=== PATIENT | male | born 1945 | race Caucasian/White ===

== ENCOUNTER 2016-09-08 12:00 | Outpatient (CLI) | payer MEDICARE, OTHER | END 2016-09-08 12:01 | disposition home or self-care (01) | DX: E78.5 Hyperlipidemia, unspecified (principal); E03.9 Hypothyroidism, unspecified; R73.9 Hyperglycemia, unspecified ==

== ENCOUNTER 2017-03-30 08:00 | Outpatient (CLI) | payer MEDICARE, OTHER ==
[2017-03-30 19:23] LABS: ALBUMIN/GLOBULIN RATIO 1.4 (1.0-2.2); BUN - BLOOD UREA NITROGEN 14 mg/dL (6-20); CARBON DIOXIDE - CO2 27 mmol/L (21-32); CHLORIDE 105 mmol/L (101-111); CREATININE 1.1 mg/dL (0.6-1.2); GFR - MDRD 66 (>89); GLUCOSE 144 mg/dL (70-100); POTASSIUM 4.2 mmol/L (3.5-5.0); SODIUM 138 mmol/L (135-145); TOTAL PROTEIN 7.4 g/dL (6.7-8.2); URIC ACID 5.3 mg/dL (2.6-7.2)
[2017-03-30 19:27] LABS: HEMOGLOBIN A1C 0.78 g/dL
== END 2017-03-30 08:01 | disposition home or self-care (01) ==
LOC: LAB.WCP 08:00
PROVIDERS: ATTEND Family Medicine
DX: M10.00 Idiopathic gout, unspecified site (principal); E78.5 Hyperlipidemia, unspecified; C34.90 Malignant neoplasm of unspecified part of unspecified bronchus or lung; I10 Essential (primary) hypertension; I82.403 Acute embolism and thrombosis of unspecified deep veins of lower extremity, bilateral; R56.9 Unspecified convulsions; R73.9 Hyperglycemia, unspecified
CPT/HCPCS: 36415; 80053; 83036; 84443; 84550

== ENCOUNTER 2017-08-31 08:00 | Outpatient (CLI) | payer MEDICARE, OTHER ==
[2017-08-31 19:06] LABS: BASOPHILS % (AUTO) 0.5 %; EOSINOPHILS # (AUTO) 0.2 10^3/uL (0.0-0.7); EOSINOPHILS % (AUTO) 2.9 %; HGB - HEMOGLOBIN 15.4 g/dL (14.0-18.0); LYMPHOCYTES # (AUTO) 1.6 10^3/uL (1.5-3.5); LYMPHOCYTES % (AUTO) 27.2 %; MEAN CORPUSCULAR HEMOGLOBIN 29.2 pg (27.0-31.0); MEAN CORPUSCULAR HGB CONC 33.5 g/dL (32.0-36.0); MEAN CORPUSCULAR VOLUME 87.1 fL (80.0-94.0); MEAN PLATELET VOLUME 7.7 fL (7.4-11.4); MONOCYTES # (AUTO) 0.5 10^3/uL (0.0-1.0); MONOCYTES % (AUTO) 8.8 %; NEUTROPHILS # (AUTO) 3.6 10^3/uL (1.5-6.6); NEUTROPHILS % (AUTO) 60.6 %; PLT - PLATELET COUNT 176 10^3/uL (130-450); RED BLOOD COUNT 5.28 10^6/uL (4.70-6.10); RED CELL DISTRIBUTION WIDTH 14.4 % (12.0-15.0); WHITE BLOOD COUNT 5.9 x10^3/uL (4.8-10.8)
[2017-08-31 19:29] LABS: ALBUMIN 4.1 g/dL (3.2-5.5); ALBUMIN/GLOBULIN RATIO 1.2 (1.0-2.2); ALKALINE PHOSPHATASE 155 IU/L (42-121); ALT ALANINE AMINOTRANSFERASE 35 IU/L (10-60); AST ASPARTATE AMINOTRANSFERASE 25 IU/L (10-42); BILIRUBIN,TOTAL 0.8 mg/dL (0.2-1.0); BUN - BLOOD UREA NITROGEN 15 mg/dL (6-20); CALCIUM 8.7 mg/dL (8.5-10.3); CARBON DIOXIDE - CO2 27 mmol/L (21-32); CHLORIDE 103 mmol/L (101-111); CHOL/HDL RATIO 3.7 (<5.0); CHOLESTEROL 151 mg/dL; CREATININE 0.9 mg/dL (0.6-1.2); GFR - MDRD 83 (>89); GLUCOSE 139 mg/dL (70-100); HDL CHOLESTEROL 41 mg/dL; LDL CHOLESTEROL,CALCULATED 76 mg/dL; LDL/HDL RATIO 1.9 (<3.6); SODIUM 138 mmol/L (135-145); TOTAL PROTEIN 7.4 g/dL (6.7-8.2); VLDL CHOLESTEROL 34 mg/dL
== END 2017-08-31 08:01 | disposition home or self-care (01) ==
LOC: LAB.WCP 08:00
PROVIDERS: ATTEND Family Medicine
DX: R07.89 Other chest pain (principal); E78.5 Hyperlipidemia, unspecified; C34.90 Malignant neoplasm of unspecified part of unspecified bronchus or lung; I10 Essential (primary) hypertension
CPT/HCPCS: 36415; 80053; 80061; 83721; 85025

== ENCOUNTER 2017-09-14 13:19 | Outpatient (CLI) | payer MEDICARE, OTHER ==
[2017-09-14] MEDS ORDERED: ALBUTEROL NEB 2.5 MG/3 ML INH ONE (13:30)
== END 2017-09-14 13:20 | disposition home or self-care (01) ==
LOC: RT 13:19
PROVIDERS: ATTEND Family Medicine
DX: J44.9 Chronic obstructive pulmonary disease, unspecified (principal)
CPT/HCPCS: 94060; 94729; J7613

== ENCOUNTER → 2018-05-03 | Outpatient (CLI) | payer MEDICARE, OTHER ==
[2018-05-03 19:14] LABS: ALBUMIN 3.9 g/dL (3.2-5.5); ALKALINE PHOSPHATASE 176 IU/L (42-121); ALT ALANINE AMINOTRANSFERASE 23 IU/L (10-60); AST ASPARTATE AMINOTRANSFERASE 20 IU/L (10-42); BILIRUBIN,TOTAL 0.6 mg/dL (0.2-1.0); BUN - BLOOD UREA NITROGEN 15 mg/dL (6-20); CALCIUM 8.9 mg/dL (8.5-10.3); CARBON DIOXIDE - CO2 29 mmol/L (21-32); CHLORIDE 101 mmol/L (101-111); CREATININE 1.1 mg/dL (0.6-1.2); GFR - MDRD 66 (>89); GLUCOSE 138 mg/dL (70-100); SODIUM 137 mmol/L (135-145); TOTAL PROTEIN 7.7 g/dL (6.7-8.2)
[2018-05-03 19:32] LABS: HEMOGLOBIN A1C 0.7 g/dL; HEMOGLOBIN A1C % 5.9 % (4.6-6.2)
== END ==
LOC: LAB.WCP 11:36
PROVIDERS: ATTEND Family Medicine
DX: R73.01 Impaired fasting glucose (principal); E03.9 Hypothyroidism, unspecified
CPT/HCPCS: 36415; 80053; 83036; 84443

== ENCOUNTER 2018-06-19 16:27 | Outpatient (CLI) | payer MEDICARE, OTHER | END 2018-06-19 16:28 | disposition EMS.NT | LOC: EMS 16:27 | PROVIDERS: ATTEND Surgery | DX: R06.02 Shortness of breath (principal); R55 Syncope and collapse ==

== ENCOUNTER 2018-09-20 08:00 | Outpatient (CLI) | payer MEDICARE, OTHER | END 2018-09-20 23:59 | disposition home or self-care (01) | LOC: LAB.WCP 08:00 | PROVIDERS: ATTEND Family Medicine | DX: I82.403 Acute embolism and thrombosis of unspecified deep veins of lower extremity, bilateral (principal); Z79.01 Long term (current) use of anticoagulants ==

== ENCOUNTER 2018-10-11 08:00 | Outpatient (CLI) | payer MEDICARE, OTHER | END 2018-10-11 23:59 | disposition home or self-care (01) | LOC: LAB.WCP 08:00 | PROVIDERS: ATTEND Family Medicine | DX: I82.403 Acute embolism and thrombosis of unspecified deep veins of lower extremity, bilateral (principal); Z79.01 Long term (current) use of anticoagulants | CPT/HCPCS: 81025 ==

== ENCOUNTER 2018-11-04 08:00 | Outpatient (CLI) | payer MEDICARE, OTHER | END 2018-11-04 08:01 | disposition home or self-care (01) | LOC: LAB.WCP 08:00 | PROVIDERS: ATTEND Family Medicine | DX: I80.9 Phlebitis and thrombophlebitis of unspecified site (principal); Z79.01 Long term (current) use of anticoagulants | CPT/HCPCS: 81025 ==

== ENCOUNTER 2018-11-22 08:00 | Outpatient (CLI) | payer MEDICARE, OTHER ==
[2018-11-22 19:12] LABS: HB2 TOTAL 17.2 g/dL; HEMOGLOBIN A1C 0.72 g/dL
[2018-11-22 19:21] LABS: ALBUMIN 3.9 g/dL (3.2-5.5); ALBUMIN/GLOBULIN RATIO 1.1 (1.0-2.2); ALKALINE PHOSPHATASE 232 IU/L (42-121); ALT ALANINE AMINOTRANSFERASE 335 IU/L (10-60); AST ASPARTATE AMINOTRANSFERASE 81 IU/L (10-42); BUN - BLOOD UREA NITROGEN 15 mg/dL (6-20); CARBON DIOXIDE - CO2 29 mmol/L (21-32); CHLORIDE 104 mmol/L (101-111); CHOL/HDL RATIO 4.2 (<5.0); CHOLESTEROL 155 mg/dL; CREATININE 1.1 mg/dL (0.6-1.2); GFR - MDRD 66 (>89); GLUCOSE 133 mg/dL (70-100); HDL CHOLESTEROL 37 mg/dL; LDL CHOLESTEROL,CALCULATED 95 mg/dL; LDL/HDL RATIO 2.6 (<3.6); SODIUM 139 mmol/L (135-145); TOTAL PROTEIN 7.4 g/dL (6.7-8.2); VLDL CHOLESTEROL 23 mg/dL
[2018-11-22 21:04] LABS: FREE T4 (FREE THYROXINE) 1.02 ng/dL (0.58-1.64)
== END 2018-11-22 08:01 | disposition home or self-care (01) ==
LOC: LAB.WCP 08:00
PROVIDERS: ATTEND Family Medicine
DX: C34.90 Malignant neoplasm of unspecified part of unspecified bronchus or lung (principal); I10 Essential (primary) hypertension; I82.403 Acute embolism and thrombosis of unspecified deep veins of lower extremity, bilateral
CPT/HCPCS: 36415; 80053; 80061; 82043; 83036; 83721; 84439; 84443

== ENCOUNTER 2018-12-07 14:46 | Outpatient (CLI) | payer MEDICARE, OTHER ==
[2018-12-08 12:11] LABS: HEPATITIS A IGM NON-REACTIVE (NON-REACTIVE); HEPATITIS B CORE ANTIBODY IGM NON-REACTIVE (NON-REACTIVE); HEPATITIS B SURFACE ANTIGEN NON-REACTIVE (NON-REACTIVE); HEPATITIS C ANTIBODY NON-REACTIVE (NON-REACTIVE)
== END 2018-12-07 14:47 | disposition home or self-care (01) ==
LOC: LAB.WCP 14:46
PROVIDERS: ATTEND Family Medicine
DX: R94.5 Abnormal results of liver function studies (principal)
CPT/HCPCS: 36415; 80074

== ENCOUNTER 2018-12-07 15:47 | Outpatient (CLI) | payer MEDICARE, OTHER ==
[2018-12-07] MEDS ORDERED: IOVERSOL 320 50 ML VIAL ONE (16:01)
[2018-12-07] MEDS ORDERED: IOVERSOL 320 100 ML VIAL IVP ONE ×2 (16:01→16:51)
[2018-12-07] MEDS ORDERED: IOVERSOL 320 50 ML VIAL PO ONE (16:51)
--- NOTE | 2018-12-20 07:24 | CT Report ---
Reason: ABNORMAL LIVER FUNCTION TESTS Procedure Date: 12/07/2018 Accession Number: [id number] / [id number] Procedure: CT - Abdomen/Pelvis W CPT Code: FULL RESULT: EXAM: CT ABDOMEN AND PELVIS EXAM DATE: 12/07/2018 04:49 PM. CLINICAL HISTORY: Abnormal liver function test. COMPARISONS: ABDOMEN/PELVIS W/ 03/31/2016 2:48 PM. TECHNIQUE: Routine helical CT imaging was performed through the abdomen and pelvis. IV contrast: 100 mL Optiray 320. Enteric contrast: No. Reconstructions: Coronal and sagittal. In accordance with CT protocol optimization, one or more of the following dose reduction techniques were utilized for this exam: automated exposure control, adjustment of mA and/or KV based on patient size, or use of iterative reconstructive technique. FINDINGS: Lung Bases: Unremarkable. Liver: The liver is enlarged measuring 20.7 cm. This may be due to variant Juan lobe anatomy. No liver lesion or mass is seen. The portal and hepatic venous vasculature is diffusely patent. Gallbladder/Bile Ducts: Cholecystectomy changes are seen. There is no biliary dilation. Spleen: Normal. Pancreas: Normal. Adrenal Glands: Normal. Kidneys: Several scattered cortical renal cysts are seen bilaterally. No complex cystic or solid masses identified. No nephrolithiasis or hydronephrosis. Peritoneal Cavity/Bowel: There is mild predominantly sigmoid diverticulosis without evidence of diverticulitis. There is no obstruction or ileus. No free fluid or free air. The appendix is not visualized, however, no inflammatory changes are seen in the right lower quadrant region. Pelvic Organs: Normal. The bladder and visualized pelvic organs are within normal limits. Vasculature: Scattered aortic calcification is seen. No aneurysm. IVC filter is in place. The IVC is atretic inferior to the filter suggesting chronic occlusion. Dilated collaterals are seen in the common iliac veins, as well as, along the anterior abdominal wall consistent with chronic IVC occlusion. Appearance is similar to 03/31/2016. Bones: Partially visualized prominent cortical thickening and prominent trabeculations in the proximal right femur possibly due to Paget's disease again seen. Similar less prominent changes in the right posterior iliac bone is also again seen. Other: None. IMPRESSION: 1. Mild hepatomegaly which may be related to variant Juan lobe anatomy. No liver lesion or mass demonstrated. 2. Mild sigmoid diverticulosis without diverticulitis. 3. Status post cholecystectomy. No biliary dilation. 4. Scattered bilateral renal cyst. No hydronephrosis. 5. 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 6. 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 RADIA
== END 2018-12-07 15:48 | disposition home or self-care (01) ==
LOC: DI 15:47
PROVIDERS: ATTEND Family Medicine
DX: R16.0 Hepatomegaly, not elsewhere classified (principal); K57.30 Diverticulosis of large intestine without perforation or abscess without bleeding; Q61.02 Congenital multiple renal cysts; I82.221 Chronic embolism and thrombosis of inferior vena cava; Z90.49 Acquired absence of other specified parts of digestive tract; R94.5 Abnormal results of liver function studies
CPT/HCPCS: 36415; 74177; 80074; Q9967

== ENCOUNTER 2018-12-20 08:00 | Outpatient (CLI) | payer MEDICARE, OTHER | END 2018-12-20 08:01 | disposition home or self-care (01) | LOC: LAB.WCP 08:00 | PROVIDERS: ATTEND Family Medicine | DX: I82.403 Acute embolism and thrombosis of unspecified deep veins of lower extremity, bilateral (principal) ==

== ENCOUNTER 2019-01-17 08:00 | Outpatient (CLI) | payer MEDICARE, OTHER | END 2019-01-17 08:01 | disposition home or self-care (01) | LOC: LAB.WCP 08:00 | PROVIDERS: ATTEND Family Medicine | DX: I82.403 Acute embolism and thrombosis of unspecified deep veins of lower extremity, bilateral (principal); Z79.01 Long term (current) use of anticoagulants ==

== ENCOUNTER 2019-01-17 08:00 | Outpatient (CLI) | payer MEDICARE, OTHER ==
[2019-01-17 18:39] LABS: BASOPHILS % (AUTO) 0.2 %; EOSINOPHILS # (AUTO) 0.2 10^3/uL (0.0-0.7); EOSINOPHILS % (AUTO) 3.3 %; HGB - HEMOGLOBIN 15.5 g/dL (14.0-18.0); LYMPHOCYTES # (AUTO) 1.2 10^3/uL (1.5-3.5); LYMPHOCYTES % (AUTO) 19.5 %; MEAN CORPUSCULAR HEMOGLOBIN 29.4 pg (27.0-31.0); MEAN CORPUSCULAR HGB CONC 32.4 g/dL (32.0-36.0); MEAN CORPUSCULAR VOLUME 90.7 fL (80.0-94.0); MEAN PLATELET VOLUME 9.6 fL (7.4-11.4); MONOCYTES # (AUTO) 0.6 10^3/uL (0.0-1.0); MONOCYTES % (AUTO) 9.5 %; NEUTROPHILS # (AUTO) 4.2 10^3/uL (1.5-6.6); PLT - PLATELET COUNT 186 10^3/uL (130-450); RED BLOOD COUNT 5.28 10^6/uL (4.70-6.10); RED CELL DISTRIBUTION WIDTH 14.4 % (12.0-15.0); WHITE BLOOD COUNT 6.3 x10^3/uL (4.8-10.8)
[2019-01-17 19:11] LABS: ALBUMIN 3.9 g/dL (3.2-5.5); ALBUMIN/GLOBULIN RATIO 1.1 (1.0-2.2); BILIRUBIN,TOTAL 0.7 mg/dL (0.2-1.0); CALCIUM 9.4 mg/dL (8.5-10.3); TOTAL PROTEIN 7.5 g/dL (6.7-8.2)
== END 2019-01-17 08:01 | disposition home or self-care (01) ==
LOC: LAB.WCP 08:00
PROVIDERS: ATTEND Family Medicine
DX: R94.5 Abnormal results of liver function studies (principal); I82.403 Acute embolism and thrombosis of unspecified deep veins of lower extremity, bilateral; Z79.01 Long term (current) use of anticoagulants
CPT/HCPCS: 36415; 80053; 85025

== ENCOUNTER 2019-02-14 08:00 | Outpatient (CLI) | payer MEDICARE, OTHER | END 2019-02-14 23:59 | disposition home or self-care (01) | LOC: LAB.WCP 08:00 | PROVIDERS: ATTEND Family Medicine | DX: I82.403 Acute embolism and thrombosis of unspecified deep veins of lower extremity, bilateral (principal); Z79.01 Long term (current) use of anticoagulants ==

== ENCOUNTER 2019-03-14 08:00 | Outpatient (CLI) | payer MEDICARE, OTHER | END 2019-03-14 23:59 | disposition home or self-care (01) | LOC: LAB.WCP 08:00 | PROVIDERS: ATTEND Family Medicine | DX: Z79.01 Long term (current) use of anticoagulants (principal); I80.9 Phlebitis and thrombophlebitis of unspecified site ==

== ENCOUNTER 2019-03-28 08:00 | Outpatient (CLI) | payer MEDICARE, OTHER | END 2019-03-28 23:59 | disposition home or self-care (01) | LOC: LAB.WCP 08:00 | PROVIDERS: ATTEND Family Medicine | DX: I82.403 Acute embolism and thrombosis of unspecified deep veins of lower extremity, bilateral (principal); Z79.01 Long term (current) use of anticoagulants ==

== ENCOUNTER 2019-04-28 08:00 | Outpatient (CLI) | payer MEDICARE, OTHER | END 2019-04-28 23:59 | disposition home or self-care (01) | LOC: LAB.WCP 08:00 | PROVIDERS: ATTEND Family Medicine | DX: Z79.01 Long term (current) use of anticoagulants (principal); I82.403 Acute embolism and thrombosis of unspecified deep veins of lower extremity, bilateral ==

== ENCOUNTER 2019-05-16 08:00 | Outpatient (CLI) | payer MEDICARE, OTHER | END 2019-05-16 23:59 | disposition home or self-care (01) | LOC: LAB.WCP 08:00 | PROVIDERS: ATTEND Family Medicine | DX: Z79.01 Long term (current) use of anticoagulants (principal); I82.403 Acute embolism and thrombosis of unspecified deep veins of lower extremity, bilateral ==

== ENCOUNTER 2019-06-06 09:00 | Outpatient (CLI) | payer MEDICARE, OTHER ==
[2019-06-06 18:58] LABS: ALBUMIN 3.3 g/dL (3.2-5.5); ALBUMIN/GLOBULIN RATIO 0.7 (1.0-2.2); BILIRUBIN,TOTAL 0.6 mg/dL (0.2-1.0); CALCIUM 8.7 mg/dL (8.5-10.3); CREATININE 1.1 mg/dL (0.6-1.2); TOTAL PROTEIN 7.8 g/dL (6.7-8.2)
[2019-06-06 19:03] LABS: HB2 TOTAL 15.8 g/dL; HEMOGLOBIN A1C 0.71 g/dL; HEMOGLOBIN A1C % 6.3 % (4.6-6.2)
== END 2019-06-06 23:59 | disposition home or self-care (01) ==
LOC: LAB.WCP 09:00
PROVIDERS: ATTEND Family Medicine
DX: R73.01 Impaired fasting glucose (principal)
CPT/HCPCS: 36415; 80053; 83036

== ENCOUNTER 2019-06-13 08:00 | Outpatient (CLI) | payer MEDICARE, OTHER | END 2019-06-13 23:59 | disposition home or self-care (01) | LOC: LAB.WCP 08:00 | PROVIDERS: ATTEND Family Medicine | DX: Z79.01 Long term (current) use of anticoagulants (principal); I82.403 Acute embolism and thrombosis of unspecified deep veins of lower extremity, bilateral ==

== ENCOUNTER 2019-06-23 15:31 | Outpatient (CLI) | payer MEDICARE, OTHER ==
--- NOTE | 2019-06-23 21:41 | Ultrasound Report ---
Reason: ABN LIVER FUNCTION TESTS Procedure Date: 06/23/2019 Accession Number: [id number] / [id number] Procedure: US - Abdomen Limited CPT Code: Final Report FULL RESULT: EXAM: ABDOMEN ULTRASOUND LIMITED, RUQ EXAM DATE: 06/23/2019 04:50 PM. CLINICAL HISTORY: ABN LIVER FUNCTION TESTS. COMPARISON: ABDOMEN/PELVIS W/ 12/07/2018 4:46 PM. TECHNIQUE: Real-time scanning was performed with static images obtained. FINDINGS: Liver: Normal in size. There may be some increased echogenicity that could be related to fatty infiltration. No focal masses. 20.6 cm. Main portal vein flow: Hepatopetal. Gallbladder: Status post cholecystectomy. Biliary System: CBD measures 7 mm. No intrahepatic or extrahepatic ductal dilatation. Other: Right kidney measures 12.1 cm in length, with several cysts, largest in the mid upper pole and is exophytic measuring 8.1 x 5.1 x 6.9 cm. Smaller adjacent cyst also seen. Both of these cysts were seen on prior CT scan. IMPRESSION: 1. Probable hepatic steatosis. 2. Right renal cysts. RADIA
== END 2019-06-23 15:32 | disposition home or self-care (01) ==
LOC: DI 15:31
PROVIDERS: ATTEND Family Medicine
DX: R94.5 Abnormal results of liver function studies (principal); Q61.02 Congenital multiple renal cysts
CPT/HCPCS: 76705

== ENCOUNTER 2019-07-11 08:00 | Outpatient (CLI) | payer MEDICARE, OTHER | END 2019-07-11 23:59 | disposition home or self-care (01) | LOC: LAB.WCP 08:00 | PROVIDERS: ATTEND Family Medicine | DX: Z79.01 Long term (current) use of anticoagulants (principal); I80.203 Phlebitis and thrombophlebitis of unspecified deep vessels of lower extremities, bilateral ==

== ENCOUNTER 2019-08-08 08:00 | Outpatient (CLI) | payer MEDICARE, OTHER | END 2019-08-08 23:59 | disposition home or self-care (01) | LOC: LAB.WCP 08:00 | PROVIDERS: ATTEND Family Medicine | DX: Z79.01 Long term (current) use of anticoagulants (principal); I82.403 Acute embolism and thrombosis of unspecified deep veins of lower extremity, bilateral ==

== ENCOUNTER 2019-09-05 08:00 | Outpatient (CLI) | payer MEDICARE, OTHER | END 2019-09-05 23:59 | disposition home or self-care (01) | LOC: LAB.WCP 08:00 | PROVIDERS: ATTEND Family Medicine | DX: I82.409 Acute embolism and thrombosis of unspecified deep veins of unspecified lower extremity (principal); Z79.01 Long term (current) use of anticoagulants ==

== ENCOUNTER 2019-10-31 08:00 | Outpatient (CLI) | payer MEDICARE, OTHER | END 2019-10-31 23:59 | disposition home or self-care (01) | LOC: LAB.WCP 08:00 | PROVIDERS: ATTEND Family Medicine | DX: I82.403 Acute embolism and thrombosis of unspecified deep veins of lower extremity, bilateral (principal); Z79.01 Long term (current) use of anticoagulants ==

== ENCOUNTER 2019-11-28 08:00 | Outpatient (CLI) | payer MEDICARE, OTHER | END 2019-11-28 23:59 | disposition home or self-care (01) | LOC: LAB.WCP 08:00 | PROVIDERS: ATTEND Family Medicine | DX: I82.403 Acute embolism and thrombosis of unspecified deep veins of lower extremity, bilateral (principal); Z79.01 Long term (current) use of anticoagulants ==

== ENCOUNTER 2019-12-26 08:00 | Outpatient (CLI) | payer MEDICARE, OTHER | END 2019-12-26 23:59 | disposition home or self-care (01) | LOC: LAB.WCP 08:00 | PROVIDERS: ATTEND Family Medicine | DX: I82.403 Acute embolism and thrombosis of unspecified deep veins of lower extremity, bilateral (principal); Z79.01 Long term (current) use of anticoagulants ==

== ENCOUNTER 2020-01-23 08:00 | Outpatient (CLI) | payer MEDICARE, OTHER | END 2020-01-23 23:59 | disposition home or self-care (01) | LOC: LAB.WCP 08:00 | PROVIDERS: ATTEND Family Medicine | DX: I82.403 Acute embolism and thrombosis of unspecified deep veins of lower extremity, bilateral (principal); Z79.01 Long term (current) use of anticoagulants ==

== ENCOUNTER 2020-02-20 08:00 | Outpatient (CLI) | payer MEDICARE, OTHER | END 2020-02-20 23:59 | disposition home or self-care (01) | LOC: LAB.WCP 08:00 | PROVIDERS: ATTEND Family Medicine | DX: I82.403 Acute embolism and thrombosis of unspecified deep veins of lower extremity, bilateral (principal); Z79.01 Long term (current) use of anticoagulants ==

== ENCOUNTER 2020-03-07 07:00 | Outpatient (CLI) | payer MEDICARE, OTHER | END 2020-03-07 23:59 | disposition home or self-care (01) | LOC: LAB.WCP 07:00 | PROVIDERS: ATTEND Family Medicine | DX: I10 Essential (primary) hypertension (principal); E03.9 Hypothyroidism, unspecified; R56.9 Unspecified convulsions | CPT/HCPCS: 36415; 80177; 81599 ==

== ENCOUNTER 2020-03-19 08:00 | Outpatient (CLI) | payer MEDICARE, OTHER | END 2020-03-19 23:59 | disposition home or self-care (01) | LOC: LAB.WCP 08:00 | PROVIDERS: ATTEND Family Medicine | DX: I82.403 Acute embolism and thrombosis of unspecified deep veins of lower extremity, bilateral (principal); Z79.01 Long term (current) use of anticoagulants ==

== ENCOUNTER 2020-04-05 08:00 | Outpatient (CLI) | payer MEDICARE, OTHER | END 2020-04-05 23:59 | disposition home or self-care (01) | LOC: LAB.WCP 08:00 | PROVIDERS: ATTEND Family Medicine | DX: Z79.01 Long term (current) use of anticoagulants (principal) ==

== ENCOUNTER 2020-04-29 08:00 | Outpatient (CLI) | payer MEDICARE, OTHER | END 2020-04-29 23:59 | disposition home or self-care (01) | LOC: LAB.WCP 08:00 | PROVIDERS: ATTEND Physician Assistant Medical | DX: Z79.01 Long term (current) use of anticoagulants (principal) ==

== ENCOUNTER 2020-05-15 08:00 | Outpatient (CLI) | payer MEDICARE, OTHER | END 2020-05-15 23:59 | disposition home or self-care (01) | LOC: LAB.WCP 08:00 | PROVIDERS: ATTEND Nurse Practitioner Family | DX: Z79.01 Long term (current) use of anticoagulants (principal) ==

== ENCOUNTER 2020-05-29 08:00 | Outpatient (CLI) | payer MEDICARE, OTHER | END 2020-05-29 23:59 | disposition home or self-care (01) | LOC: LAB.WCP 08:00 | PROVIDERS: ATTEND Family Medicine | DX: Z79.01 Long term (current) use of anticoagulants (principal) ==

== ENCOUNTER 2020-07-03 08:00 | Outpatient (CLI) | payer MEDICARE, OTHER | END 2020-07-03 23:59 | disposition home or self-care (01) | LOC: LAB.WCP 08:00 | PROVIDERS: ATTEND Family Medicine | DX: Z79.01 Long term (current) use of anticoagulants (principal) ==

== ENCOUNTER 2020-07-17 08:00 | Outpatient (CLI) | payer MEDICARE, OTHER | END 2020-07-17 23:59 | disposition home or self-care (01) | LOC: LAB.WCP 08:00 | PROVIDERS: ATTEND Family Medicine | DX: Z79.01 Long term (current) use of anticoagulants (principal) ==

== ENCOUNTER 2020-08-22 08:00 | Outpatient (CLI) | payer MEDICARE, OTHER ==
[2020-08-22 12:00] LABS: BASOPHILS % (AUTO) 0.3 %; EOSINOPHILS # (AUTO) 0.2 10^3/uL (0.0-0.7); EOSINOPHILS % (AUTO) 3.3 %; HGB - HEMOGLOBIN 15.5 g/dL (14.0-18.0); LYMPHOCYTES # (AUTO) 1.6 10^3/uL (1.5-3.5); LYMPHOCYTES % (AUTO) 24.2 %; MEAN CORPUSCULAR HEMOGLOBIN 29.3 pg (27.0-31.0); MEAN CORPUSCULAR HGB CONC 32.3 g/dL (32.0-36.0); MEAN CORPUSCULAR VOLUME 90.7 fL (80.0-94.0); MEAN PLATELET VOLUME 8.9 fL (7.4-11.4); MONOCYTES # (AUTO) 0.6 10^3/uL (0.0-1.0); MONOCYTES % (AUTO) 8.5 %; NEUTROPHILS # (AUTO) 4.1 10^3/uL (1.5-6.6); NEUTROPHILS % (AUTO) 63.4 %; PLT - PLATELET COUNT 300 10^3/uL (130-450); RED BLOOD COUNT 5.29 10^6/uL (4.70-6.10); RED CELL DISTRIBUTION WIDTH 13.5 % (12.0-15.0); WHITE BLOOD COUNT 6.4 x10^3/uL (4.8-10.8)
[2020-08-22 12:38] LABS: ALBUMIN 3.5 g/dL (3.2-5.5); ALBUMIN/GLOBULIN RATIO 0.7 (1.0-2.2); BILIRUBIN,TOTAL 0.6 mg/dL (0.2-1.0); CALCIUM 9.3 mg/dL (8.5-10.3); TOTAL PROTEIN 8.2 g/dL (6.7-8.2)
[2020-08-22 13:18] LABS: FREE T4 (FREE THYROXINE) 1.22 ng/dL (0.58-1.64)
== END 2020-08-22 23:59 | disposition home or self-care (01) ==
LOC: LAB.WCP 08:00
PROVIDERS: ATTEND Family Medicine
DX: I10 Essential (primary) hypertension (principal); E03.9 Hypothyroidism, unspecified; G40.909 Epilepsy, unspecified, not intractable, without status epilepticus
CPT/HCPCS: 36415; 80053; 84439; 84443; 85025

== ENCOUNTER 2020-09-25 08:00 | Outpatient (CLI) | payer MEDICARE, OTHER | END 2020-09-25 23:59 | disposition home or self-care (01) | LOC: LAB.N 08:00 | PROVIDERS: ATTEND Family Medicine | DX: I82.403 Acute embolism and thrombosis of unspecified deep veins of lower extremity, bilateral (principal); Z79.01 Long term (current) use of anticoagulants ==

== ENCOUNTER 2020-10-16 08:00 | Outpatient (CLI) | payer MEDICARE, OTHER | END 2020-10-16 23:59 | disposition home or self-care (01) | LOC: LAB.N 08:00 | PROVIDERS: ATTEND Family Medicine | DX: I82.403 Acute embolism and thrombosis of unspecified deep veins of lower extremity, bilateral (principal); Z79.01 Long term (current) use of anticoagulants ==

== ENCOUNTER 2020-10-17 16:25 | Outpatient (CLI) | payer MEDICARE, OTHER ==
--- NOTE | 2020-10-17 16:56 | XRAY Report ---
PROCEDURE: Chest 2 View X-Ray INDICATIONS: COPD, CHRONIC COUGH TECHNIQUE: 2 view(s) of the chest. COMPARISON: 01/28/2016 FINDINGS: Surgical changes and devices: None. Lungs and pleura: No pleural effusions or pneumothorax. Mild airspace opacity within the bilateral m id lungs as well as the right lung base. Mediastinum: Mediastinal contours are normal. Heart size is normal. Bones and chest wall: No suspicious bony abnormalities. Soft tissues appear unremarkable. IMPRESSION: Mild bilateral pneumonia. Follow-up PA and lateral chest x-rays or chest CT is recommend ed to ensure resolution, and to exclude underlying neoplasm. Reviewed by: Narendra Woodward MD on 10/17/2020 4:55 PM PDT Approved by: Narendra Woodward MD on 10/17/2020 4:55 PM PDT Station ID: [id number]
== END 2020-10-17 16:26 | disposition home or self-care (01) ==
LOC: DI.N 16:25
PROVIDERS: ATTEND Family Medicine
DX: J18.9 Pneumonia, unspecified organism (principal)

== ENCOUNTER 2020-11-13 08:00 | Outpatient (CLI) | payer MEDICARE, OTHER | END 2020-11-13 23:59 | disposition home or self-care (01) | LOC: LAB.WCP 08:00 | PROVIDERS: ATTEND Family Medicine | DX: Z79.01 Long term (current) use of anticoagulants (principal); I82.403 Acute embolism and thrombosis of unspecified deep veins of lower extremity, bilateral ==

== ENCOUNTER 2020-11-13 14:42 | Outpatient (CLI) | payer MEDICARE, OTHER ==
--- NOTE | 2020-11-13 17:44 | CT Report ---
PROCEDURE: CHEST WO INDICATIONS: CHRONIC COUGH, COPD, HX OF LUNG CA TECHNIQUE: Noncontrast 5 mm thick sections acquired from the pulmonary apices to the posterior costophrenic angl es. 7 mm thick coronal and sagittal MIP reformats were then acquired. For radiation dose reduction, the following was used: automated exposure control, adjustment of mA and/or kV according to patient size. COMPARISON: 03/31/2016 FINDINGS: Image quality: Excellent. Lungs and pleura: The lungs have severe centrilobular emphysematous changes. Bilateral subpleural se ptal thickening has developed since the prior CT in 2016. Bilateral subcentimeter nodules, some with a spiculated appearance are seen (for example in CT series 4: Right upper lobe image 63, right middle lobe images 210 through 222, left lower lobe series 244) which are new compared to [facility]. No pleural effusions or pneumothorax. Central and peripheral airways are patent and normal in caliber. Mediastinum: Heart size is normal. No pericardial effusion. The coronary arteries have atherosclero tic calcifications. No mediastinal adenopathy by size criteria. Thoracic aorta and central pulmonar y arteries are normal in size. Esophagus is normal in caliber. No hiatal hernia. Bones and chest wall: No suspicious bony lesions. No vertebral body compression fractures. No axil emili or supraclavicular adenopathy by size criteria. The thyroid is normal in size. Abdomen: Visualized upper abdominal solid organs and bowel loops appear normal in the absence of con trast. IMPRESSION: 1. Severe centrilobular emphysema. 2. Subpleural nodules and fibrosis which have developed since the prior CT in 2015. Differential diag nosis includes developing interstitial fibrosis, cryptogenic organizing pneumonia, or an atypical inf ectious process such as WISAM. Neoplasm cannot be excluded and follow-up CT in 6 months to ensure lack of progression is recommended. Bronchoscopy may be helpful for further evaluation. Reviewed by: Jim Denis on 11/13/2020 5:43 PM PDT Approved by: Jim Denis on 11/13/2020 5:43 PM PDT Station ID: [id number]
== END 2020-11-13 14:43 | disposition home or self-care (01) ==
LOC: DI 14:42
PROVIDERS: ATTEND Family Medicine
DX: J43.2 Centrilobular emphysema (principal); R91.8 Other nonspecific abnormal finding of lung field; J84.10 Pulmonary fibrosis, unspecified; I82.403 Acute embolism and thrombosis of unspecified deep veins of lower extremity, bilateral; Z79.01 Long term (current) use of anticoagulants

== ENCOUNTER 2020-12-04 08:00 | Outpatient (CLI) | payer MEDICARE, OTHER | END 2020-12-04 23:59 | disposition home or self-care (01) | LOC: LAB.N 08:00 | PROVIDERS: ATTEND Family Medicine | DX: I82.403 Acute embolism and thrombosis of unspecified deep veins of lower extremity, bilateral (principal); Z79.01 Long term (current) use of anticoagulants ==

== ENCOUNTER 2020-12-11 08:00 | Outpatient (CLI) | payer MEDICARE, OTHER | END 2020-12-11 23:59 | disposition home or self-care (01) | LOC: LAB.N 08:00 | PROVIDERS: ATTEND Family Medicine | DX: I82.403 Acute embolism and thrombosis of unspecified deep veins of lower extremity, bilateral (principal); Z79.01 Long term (current) use of anticoagulants ==

== ENCOUNTER 2020-12-18 16:52 | Outpatient (CLI) | payer MEDICARE, OTHER ==
[2020-12-18 21:01] LABS: CALCIUM 9.7 mg/dL (8.5-10.3); CREATININE 0.9 mg/dL (0.6-1.2); POTASSIUM 4.3 mmol/L (3.5-5.0)
== END 2020-12-18 16:53 | disposition home or self-care (01) ==
LOC: LAB.N 16:52
PROVIDERS: ATTEND Family Medicine
DX: H02.845 Edema of left lower eyelid (principal)
CPT/HCPCS: 36415; 80048

== ENCOUNTER 2020-12-19 17:31 | Outpatient (CLI) | payer MEDICARE, OTHER | END 2020-12-19 17:32 | disposition home or self-care (01) | LOC: LAB.N 17:31 | PROVIDERS: ATTEND Specialist | DX: J98.4 Other disorders of lung (principal); Z79.01 Long term (current) use of anticoagulants | CPT/HCPCS: 36416; 85610 ==

== ENCOUNTER 2020-12-25 08:00 | Outpatient (CLI) | payer MEDICARE, OTHER | END 2020-12-25 23:59 | disposition home or self-care (01) | LOC: LAB.N 08:00 | PROVIDERS: ATTEND Family Medicine | DX: I80.203 Phlebitis and thrombophlebitis of unspecified deep vessels of lower extremities, bilateral (principal); Z79.01 Long term (current) use of anticoagulants ==

== ENCOUNTER 2021-01-08 08:00 | Outpatient (CLI) | payer MEDICARE, OTHER | END 2021-01-08 23:59 | disposition home or self-care (01) | LOC: LAB.N 08:00 | PROVIDERS: ATTEND Family Medicine | DX: Z79.01 Long term (current) use of anticoagulants (principal); I82.403 Acute embolism and thrombosis of unspecified deep veins of lower extremity, bilateral ==

== ENCOUNTER 2021-01-22 08:00 | Outpatient (CLI) | payer MEDICARE, OTHER | END 2021-01-22 23:59 | disposition home or self-care (01) | LOC: LAB.N 08:00 | PROVIDERS: ATTEND Family Medicine | DX: I82.403 Acute embolism and thrombosis of unspecified deep veins of lower extremity, bilateral (principal); Z79.01 Long term (current) use of anticoagulants ==

== ENCOUNTER 2021-02-12 08:00 | Outpatient (CLI) | payer MEDICARE, OTHER | END 2021-02-12 23:59 | disposition home or self-care (01) | LOC: LAB.N 08:00 | PROVIDERS: ATTEND Family Medicine | DX: I82.403 Acute embolism and thrombosis of unspecified deep veins of lower extremity, bilateral (principal); Z79.01 Long term (current) use of anticoagulants ==

== ENCOUNTER 2021-03-12 08:00 | Outpatient (CLI) | payer MEDICARE, OTHER | END 2021-03-12 23:59 | disposition home or self-care (01) | LOC: LAB.WCP 08:00 | PROVIDERS: ATTEND Family Medicine | DX: I82.403 Acute embolism and thrombosis of unspecified deep veins of lower extremity, bilateral (principal); Z79.01 Long term (current) use of anticoagulants ==

== ENCOUNTER 2021-04-02 14:08 | Outpatient (CLI) | payer MEDICARE, OTHER ==
[2021-04-02 17:48] LABS: BASOPHILS % (AUTO) 0.3 %; EOSINOPHILS # (AUTO) 0.2 10^3/uL (0.0-0.7); EOSINOPHILS % (AUTO) 2.9 %; HCT - HEMATOCRIT 46.7 % (42.0-52.0); HGB - HEMOGLOBIN 15.3 g/dL (14.0-18.0); LYMPHOCYTES % (AUTO) 16.7 %; MEAN CORPUSCULAR HEMOGLOBIN 29.4 pg (27.0-31.0); MEAN CORPUSCULAR HGB CONC 32.8 g/dL (32.0-36.0); MEAN CORPUSCULAR VOLUME 89.8 fL (80.0-94.0); MEAN PLATELET VOLUME 9.4 fL (7.4-11.4); MONOCYTES # (AUTO) 0.5 10^3/uL (0.0-1.0); MONOCYTES % (AUTO) 8.5 %; NEUTROPHILS # (AUTO) 4.4 10^3/uL (1.5-6.6); NEUTROPHILS % (AUTO) 71.1 %; PLT - PLATELET COUNT 209 10^3/uL (130-450); RED CELL DISTRIBUTION WIDTH 13.7 % (12.0-15.0); WHITE BLOOD COUNT 6.2 x10^3/uL (4.8-10.8)
[2021-04-02 18:36] LABS: ALBUMIN 3.7 g/dL (3.2-5.5); ALBUMIN/GLOBULIN RATIO 0.9 (1.0-2.2); ALKALINE PHOSPHATASE 190 IU/L (42-121); ALT ALANINE AMINOTRANSFERASE 36 IU/L (10-60); AST ASPARTATE AMINOTRANSFERASE 26 IU/L (10-42); BILIRUBIN,TOTAL 0.8 mg/dL (0.2-1.0); BUN - BLOOD UREA NITROGEN 20 mg/dL (6-20); CALCIUM 9.5 mg/dL (8.5-10.3); CARBON DIOXIDE - CO2 32 mmol/L (21-32); CHLORIDE 104 mmol/L (101-111); CHOL/HDL RATIO 4.3 (<5.0); CHOLESTEROL 207 mg/dL; CREATININE 1.1 mg/dL (0.6-1.2); GFR - MDRD 65 (>89); GLUCOSE 117 mg/dL (70-100); HDL CHOLESTEROL 48 mg/dL; LDL CHOLESTEROL,CALCULATED 138 mg/dL; LDL/HDL RATIO 2.9 (<3.6); POTASSIUM 4.6 mmol/L (3.5-5.0); SODIUM 145 mmol/L (135-145); TOTAL PROTEIN 7.9 g/dL (6.7-8.2); TRIGLYCERIDES 104 mg/dL; URIC ACID 5.1 mg/dL (2.6-7.2); VLDL CHOLESTEROL 21 mg/dL
[2021-04-02 18:41] LABS: THYROID STIMULATING HORMONE 5.21 uIU/mL (0.34-5.60)
[2021-04-02 21:00] LABS: ESTIMATED AVERAGE GLUCOSE 123 mg/dL (70-100); HEMOGLOBIN A1c% 5.9 % (4.27-6.07)
== END 2021-04-02 14:09 | disposition home or self-care (01) ==
LOC: LAB.N 14:08
PROVIDERS: ATTEND Family Medicine
DX: E78.5 Hyperlipidemia, unspecified (principal); R73.01 Impaired fasting glucose; E03.9 Hypothyroidism, unspecified; I10 Essential (primary) hypertension; M10.9 Gout, unspecified
CPT/HCPCS: 36415; 80053; 80061; 83036; 83721; 84443; 84550; 85025

== ENCOUNTER 2021-04-30 08:00 | Outpatient (CLI) | payer MEDICARE, OTHER | END 2021-04-30 23:59 | disposition home or self-care (01) | LOC: LAB.WCP 08:00 | PROVIDERS: ATTEND Family Medicine | DX: Z79.01 Long term (current) use of anticoagulants (principal); I82.403 Acute embolism and thrombosis of unspecified deep veins of lower extremity, bilateral ==

== ENCOUNTER 2021-05-08 08:00 | Outpatient (CLI) | payer MEDICARE, OTHER ==
[2021-05-08 18:36] LABS: ALBUMIN 3.4 g/dL (3.2-5.5); ALBUMIN/GLOBULIN RATIO 0.8 (1.0-2.2); BILIRUBIN,TOTAL 0.9 mg/dL (0.2-1.0); CALCIUM 9.1 mg/dL (8.5-10.3); CREATININE 0.9 mg/dL (0.6-1.2); POTASSIUM 4.3 mmol/L (3.5-5.0); TOTAL PROTEIN 7.6 g/dL (6.7-8.2)
[2021-05-08 18:51] LABS: BASOPHILS % (AUTO) 0.2 %; EOSINOPHILS # (AUTO) 0.1 10^3/uL (0.0-0.7); HCT - HEMATOCRIT 49.6 % (42.0-52.0); HGB - HEMOGLOBIN 15.8 g/dL (14.0-18.0); INR 3.9 (0.8-1.2); LYMPHOCYTES # (AUTO) 0.9 10^3/uL (1.5-3.5); LYMPHOCYTES % (AUTO) 14.5 %; MEAN CORPUSCULAR HEMOGLOBIN 28.8 pg (27.0-31.0); MEAN CORPUSCULAR HGB CONC 31.9 g/dL (32.0-36.0); MEAN CORPUSCULAR VOLUME 90.5 fL (80.0-94.0); MEAN PLATELET VOLUME 9.1 fL (7.4-11.4); MONOCYTES # (AUTO) 0.6 10^3/uL (0.0-1.0); MONOCYTES % (AUTO) 8.6 %; NEUTROPHILS # (AUTO) 4.7 10^3/uL (1.5-6.6); NEUTROPHILS % (AUTO) 74.4 %; PLT - PLATELET COUNT 313 10^3/uL (130-450); PT - PROTHROMBIN TIME 42.9 secs (9.9-12.6); RED BLOOD COUNT 5.48 10^6/uL (4.70-6.10); WHITE BLOOD COUNT 6.4 x10^3/uL (4.8-10.8)
== END 2021-05-08 23:59 | disposition home or self-care (01) ==
LOC: LAB.WCP 08:00
PROVIDERS: ATTEND Family Medicine
DX: J90 Pleural effusion, not elsewhere classified (principal); C34.90 Malignant neoplasm of unspecified part of unspecified bronchus or lung
CPT/HCPCS: 36415; 80053; 85025; 85610

== ENCOUNTER 2021-05-08 12:52 | Outpatient (CLI) | payer MEDICARE, OTHER ==
--- NOTE | 2021-05-15 22:35 | XRAY Report ---
PROCEDURE: Chest 2 View X-Ray INDICATIONS: PLEURAL EFFUSION, LEFT TECHNIQUE: 2 view(s) of the chest. COMPARISON: CT of chest dated 11/13/2020 and chest radiograph dated 10/17/2020. FINDINGS: Surgical changes and devices: None. Lungs and pleura: Blunting of right costophrenic angle is seen suggestive of trace right pleural effu kendell versus pleural thickening. No left-sided pleural effusion is seen. Chronic emphysematous changes are noted with scarring/atelectasis seen in right upper lobe and bilateral lung bases. No definite f ocal infiltrate. No pneumothorax. Mediastinum: Mediastinal contours are normal. Heart size is normal. Bones and chest wall: No suspicious bony abnormalities. Soft tissues appear unremarkable. IMPRESSION: Suggestion of trace right pleural effusion/atelectasis. Bibasilar scarring and right api justin scarring. COPD. No definite focal infiltrate. No gross pneumothorax. No evidence of left-sided pl eural effusion. Reviewed by: Riccardo Nicole MD on 05/15/2021 10:34 PM PDT Approved by: Riccardo Nicole MD on 05/15/2021 10:34 PM PDT Station ID: [id number]
== END 2021-05-08 12:53 | disposition home or self-care (01) ==
LOC: DI.N 12:52
PROVIDERS: ATTEND Family Medicine
DX: J90 Pleural effusion, not elsewhere classified (principal); J44.9 Chronic obstructive pulmonary disease, unspecified; R91.8 Other nonspecific abnormal finding of lung field; C34.90 Malignant neoplasm of unspecified part of unspecified bronchus or lung
CPT/HCPCS: 36415; 80053; 85025; 85610

== ENCOUNTER 2021-05-21 08:00 | Outpatient (CLI) | payer MEDICARE, OTHER | END 2021-05-21 23:59 | disposition home or self-care (01) | LOC: LAB.WCP 08:00 | PROVIDERS: ATTEND Family Medicine | DX: I82.403 Acute embolism and thrombosis of unspecified deep veins of lower extremity, bilateral (principal); Z79.01 Long term (current) use of anticoagulants ==

== ENCOUNTER 2021-06-10 13:21 | Outpatient (CLI) | payer MEDICARE, OTHER ==
--- NOTE | 2021-06-10 17:48 | CT Report ---
PROCEDURE: CHEST WO INDICATIONS: LUNG NODULE, HX OF LUNG CA TECHNIQUE: Noncontrast 1mm axial images were acquired from the pulmonary apices to the posterior costophrenic an gles. Axial 5 mm soft tissue kernel reconstructions were performed as well as 8 mm axial MIP and cor onal and sagittal 5 mm reformations. For radiation dose reduction, the following was used: automate d exposure control, adjustment of mA and/or kV according to patient size. COMPARISON: 11/13/2020 FINDINGS: Image quality: Excellent. Lungs and pleura: No acute air space opacities. Stable appearance of moderate-severe upper lobe pre dominant centrilobular pulmonary emphysema. Previously described right upper lobe pulmonary nodule is no longer visualized. There is new 8 x 9 mm medial right apical nodule (image 45/series 4). Multiple subcentimeter irregular right lower lobe pulmonary nodules are again noted. Some appear stable, some are less conspicuous and a new irregular nodule is noted anteriorly in the right lower lobe. For exa mple subpleural nodule on comparison study seen on 11/13/2020 has resolved (image 224/series 4). The ne w nodule on today's exam is seen on image 191/series 4 measuring approximately 0.7 cm. Irregular righ t middle lobe nodule is less conspicuous compared to the prior study. Degree of perihilar airway thic kening of the right middle lobe has also decreased. A few peripheral left upper lobe nodules are stab le. These appear to be in a somewhat tree-in-bud distribution. Stable to slightly increased size of p eripheral left lower lobe nodule now measuring 6 mm versus 5 mm previously (image 252/series 4). No p leural effusions or pneumothorax. Central and peripheral airways are patent and demonstrate mild per ihilar airway thickening. Mediastinum: Heart size is normal. Coronary satherosclerosis. No pericardial effusion. No mediastin al adenopathy by size criteria. Thoracic aorta and central pulmonary arteries are normal in size. E sophagus is normal in caliber. No hiatal hernia. Bones and chest wall: No suspicious bony lesions. No vertebral body compression fractures. No axil emili or supraclavicular adenopathy by size criteria. The thyroid is normal in size and there are no incidental findings. Abdomen: Multiple bilateral renal cysts are again noted. Status post cholecystectomy. Remainder of t he visualized upper abdominal solid organs and bowel loops appear normal in the absence of contrast. IMPRESSION: 1. Multiple scattered subpleural and peripheral pulmonary nodules are noted in the bilateral hemithor aces. Some are stable, some have resolved, and a few new lesions are noted. A left lower lobe nodule demonstrates stable to slight interval increase in size previously measuring approximately 5 mm and m easuring 6 mm today. Overall, these findings may represent an atypical infectious process such as WISAM or other viral process. Organizing pneumonia may have a similar appearance. Neoplastic process not c ompletely excluded. Recommend continued clinical and imaging surveillance. Consider follow-up CT in 3 -6 months. Bronchoscopy may also be helpful to further evaluate. 2. Stable appearance of severe upper lobe predominant centrilobular pulmonary emphysema. CLINICAL RECOMMENDATION STATEMENTS: In patients <35 years with an ITN detected on CT, MRI, or extrathyroidal ultrasound, the Committee re commends further evaluation with dedicated thyroid ultrasound if the nodule is "e1 cm and has no susp icious imaging features, and if the patient has normal life expectancy. In patients "e35 years with an ITN detected on CT, MRI, or extrathyroidal ultrasound, the Committee r ecommends further evaluation with dedicated thyroid ultrasound if the nodule is "e1.5 cm and has no s uspicious imaging features, and if the patient has normal life expectancy. (ACR, 2014) Reviewed by: Nadeem Middleton MD on 06/10/2021 5:46 PM PST Approved by: Nadeem Middleton MD on 06/10/2021 5:46 PM PST Station ID: [id number]
== END 2021-06-10 13:22 | disposition home or self-care (01) ==
LOC: DI 13:21
PROVIDERS: ATTEND Family Medicine
DX: R91.8 Other nonspecific abnormal finding of lung field (principal); J43.2 Centrilobular emphysema; Z85.118 Personal history of other malignant neoplasm of bronchus and lung

== ENCOUNTER 2021-06-11 08:00 | Outpatient (CLI) | payer MEDICARE, OTHER | END 2021-06-11 23:59 | disposition home or self-care (01) | LOC: LAB.N 08:00 | PROVIDERS: ATTEND Family Medicine | DX: I82.403 Acute embolism and thrombosis of unspecified deep veins of lower extremity, bilateral (principal); Z79.01 Long term (current) use of anticoagulants ==

== ENCOUNTER 2021-08-06 08:00 | Outpatient (CLI) | payer MEDICARE, OTHER | END 2021-08-06 23:59 | disposition home or self-care (01) | LOC: LAB.N 08:00 | PROVIDERS: ATTEND Family Medicine | DX: I82.403 Acute embolism and thrombosis of unspecified deep veins of lower extremity, bilateral (principal); Z79.01 Long term (current) use of anticoagulants ==

== ENCOUNTER 2021-08-25 08:00 | Outpatient (CLI) | payer MEDICARE, OTHER | END 2021-08-25 23:59 | disposition home or self-care (01) | LOC: LAB.N 08:00 | PROVIDERS: ATTEND Family Medicine | DX: I82.403 Acute embolism and thrombosis of unspecified deep veins of lower extremity, bilateral (principal); Z79.01 Long term (current) use of anticoagulants ==

== ENCOUNTER 2021-09-04 13:30 | Outpatient (CLI) | payer MEDICARE, OTHER ==
--- NOTE | 2021-09-04 16:12 | Ultrasound Report ---
PROCEDURE: Head or Neck Soft Tissue INDICATIONS: THYROID NODULE TECHNIQUE: Real-time scanning was performed of the thyroid gland, with image documentation. COMPARISON: 07/26/2009 FINDINGS: Right: Thyroid lobe measures 3.1 x 1.0 x 1.1 cm, and is homogeneous in echotexture. Left: Thyroid lobe measures 3.8 x 2.5 x 1.9 cm, and is homogenous in echotexture. Isthmus: 7 mm thick. Nodule number: One Location: Left Size: 3.2 x 2.2 x 2.0 cm (3.5 x 2.5 x 2.1 cm previously). Composition: Solid Echogenicity: Hypoechoic Shape: wider than tall. Margins: Lobulated Echogenic foci: Peripheral calcifications Total points: 8 ACR TI-RADS category: Highly suspicious IMPRESSION: Left thyroid nodule with highly suspicious ultrasound imaging characteristics. Recommend ultrasound-guided fine-needle aspiration for definitive characterization. ACR TI-RADS definitions and recommendations: TI-RADS 1 (benign): 0 points. FNA not needed. TI-RADS 2 (not suspicious): 2 points. FNA not needed. TI-RADS 3 (mildly suspicious): 3 points. "FNA if 2.5 cm or larger, follow up if 1.5 cm or larger (at 1, 3, and 5 years). TI-RADS 4 (moderately suspicious): 4-6 points. "FNA if 1.5 cm or larger, follow up if 1 cm or larger (at 1, 2, 3, and 5 years). TI-RADS 5 (highly suspicious): 7 points or more. "FNA if 1 cm or larger, follow up if 0.5 cm or larger (every year for 5 years). Reviewed by: Kimmy Bryson MD, PhD on 09/04/2021 4:10 PM PST Approved by: Kimmy Bryson MD, PhD on 09/04/2021 4:10 PM PST Station ID: [id number]
== END 2021-09-04 13:31 | disposition home or self-care (01) ==
LOC: DI 13:30
PROVIDERS: ATTEND Family Medicine
DX: E04.1 Nontoxic single thyroid nodule (principal)

== ENCOUNTER 2021-09-25 11:28 | Day surgery (SDC) | payer MEDICARE, OTHER ==
[~2021-09-25 11:28] MED LIST: PROPOFOL 500 MG/50 ML 500 MG/50 ML VIAL ONE
[2021-09-25] MEDS ORDERED: LACTATED RINGERS 1,000 ML IV ONE ×2 (11:55→13:54)
--- NOTE | 2021-09-25 11:57 | ANESTHESIA ---
Pre-Anesthesia VS, & Labs - Diagnosis positive PET esophagus/colon - Procedure EGD, Colonoscopy Height: 5 ft 11 in - NPO >8 hours Last Fluid Intake: am prep - Lab Results Lab results reviewed: Yes Home Medications and Allergies Home Medications: Ambulatory Orders Albuterol Sulf [Ventolin Hfa Inhaler] 1 - 2 puffs INH Q4HR PRN 09/15/21 Cholecalciferol [Vitamin D3] 5,000 unit PO DAILY 09/15/21 Timolol [Betimol] 1 drops EACHEYE BID 09/15/21 Warfarin Sodium [Coumadin] 5 - 7.5 mg PO DAILY 09/10/14 allopurinoL [Allopurinol] 100 mg PO QPM 09/10/14 levETIRAcetam [Keppra] 1,000 mg PO BID 09/10/14 Latanoprost 0.005% Ophth Drops [Xalatan Ophth Drops] 1 drops OPTH QPM 09/12/14 Levothyroxine Sodium 100 mcg PO DAILY 09/12/14 Albuterol Sulf [Ventolin Hfa Inhaler] 1 - 2 puffs INH Q4HR PRN 09/15/21 Cholecalciferol [Vitamin D3] 5,000 unit PO DAILY 09/15/21 Timolol [Betimol] 1 drops EACHEYE BID 09/15/21 Allergies/Adverse Reactions: Allergies Allergy/AdvReac Type Severity Reaction Status Date / Time No Known Drug Allergies Allergy Verified 09/10/14 16:15 Anes History & Medical History - Anesthetic History Anesthesia Complications: reports: No previous complications Family history of Anesthesia Complications: Denies Family history of Malignant Hyperthermia: Denies - Medical History Cardiovascular: reports: Deep vein thrombosis Pulmonary: reports: COPD, Other Gastrointestinal: reports: None Urinary: reports: None Musculoskeletal: reports: Gout Endocrine/Autoimmune: reports: HyPOthyroidism Skin: reports: Other Smoking Status: Former smoker - Surgical History General: reports: Cholecystectomy Eyes Ears Nose Throat (EENT): reports: Cataracts Neurologic: reports: Craniotomy Dermatologic: reports: Skin cancer surgery Exam General: Alert, Oriented x3, Cooperative Mouth Openin Fingerbreadth Neck Mobility: Normal Mallampati classification: II Thyromental Distance: 4-6 cm Respiratory: Lungs clear, Normal breath sounds, No respiratory distress Cardiovascular: Regular rate Mental/Cognitive Status: Alert/Oriented X3, Normal for patient Cognitive Status: Within normal limits Plan Anesthesia Type: Total IV Consent for Procedure(s) Verified and Reviewed: Yes Code Status: Attempt Resuscitation ASA classification: 3-Severe systemic disease Is this case an emergency?: No
[2021-09-25] MEDS ORDERED: MIDAZOLAM 2 MG/2 ML VIAL ONE (12:32)
[2021-09-25] MEDS ORDERED: LIDOCAINE-MPF 2% 5 ML VIAL ONE (12:32)
[2021-09-25] MEDS ORDERED: PHENYLEPHRINE 10 MG/ML VIAL ONE (13:16)
[2021-09-25] MEDS ORDERED: SODIUM CHLORIDE FLUSH 0.9% 10 ML SYRINGE IVP ONE (13:16)
[2021-09-25 14:11] VITALS: BP 124/80
--- NOTE | 2021-09-25 15:21 | ANESTHESIA POST OP EVALUATION ---
Anesthesia Post Eval - Post Anesthesia Eval Vitals: Last Vital Signs Temp 36.3 C L 09/25/21 14:26 Pulse 83 09/25/21 14:26 Resp 16 09/25/21 14:26 BP 124/80 09/25/21 14:26 Pulse Ox 100 09/25/21 14:26 CV Function Including HR & BP: Stable Pain Control: Satisfactory Nausea & Vomiting: Negative Mental Status: Baseline Respiratory Status: Airway Patent Hydration Status: Satisfactory Anesthesia Complications: None
== END 2021-09-25 11:29 | disposition home or self-care (01) ==
LOC: SDS 11:28
PROVIDERS: ATTEND Surgery
PROC: 0DBH8ZZ Excision of Cecum, Via Natural or Artificial Opening Endoscopic (ICD-10-PCS; 2021-09-25)
PROC: 0DJ08ZZ Inspection of Upper Intestinal Tract, Via Natural or Artificial Opening Endoscopic (ICD-10-PCS; 2021-09-25)
PROC: 0DBK8ZZ Excision of Ascending Colon, Via Natural or Artificial Opening Endoscopic (ICD-10-PCS; principal; 2021-09-25 12:45)
PROC: 0DBP8ZZ Excision of Rectum, Via Natural or Artificial Opening Endoscopic (ICD-10-PCS; 2021-09-25 12:45)
DX: K22.89 Other specified disease of esophagus (principal); K63.89 Other specified diseases of intestine; D12.1 Benign neoplasm of appendix; D12.2 Benign neoplasm of ascending colon; D12.8 Benign neoplasm of rectum; K57.30 Diverticulosis of large intestine without perforation or abscess without bleeding; J44.9 Chronic obstructive pulmonary disease, unspecified; Z87.891 Personal history of nicotine dependence
CPT/HCPCS: 43235; 45385; J7120

== ENCOUNTER 2021-10-08 08:00 | Outpatient (CLI) | payer MEDICARE, OTHER | END 2021-10-08 08:01 | disposition home or self-care (01) | LOC: LAB.N 08:00 | PROVIDERS: ATTEND Family Medicine | DX: I82.403 Acute embolism and thrombosis of unspecified deep veins of lower extremity, bilateral (principal); Z79.01 Long term (current) use of anticoagulants ==

== ENCOUNTER 2021-11-12 08:00 | Outpatient (CLI) | payer MEDICARE, OTHER | END 2021-11-12 23:59 | LOC: LAB.N 08:00 | PROVIDERS: ATTEND Family Medicine | DX: I82.403 Acute embolism and thrombosis of unspecified deep veins of lower extremity, bilateral (principal); Z79.01 Long term (current) use of anticoagulants ==

== ENCOUNTER 2021-11-19 08:00 | Outpatient (CLI) | payer MEDICARE, OTHER | END 2021-11-19 23:59 | disposition home or self-care (01) | LOC: LAB.N 08:00 | PROVIDERS: ATTEND Family Medicine | DX: I82.403 Acute embolism and thrombosis of unspecified deep veins of lower extremity, bilateral (principal); Z79.01 Long term (current) use of anticoagulants ==

== ENCOUNTER 2021-11-26 08:00 | Outpatient (CLI) | payer MEDICARE, OTHER | END 2021-11-26 23:59 | disposition home or self-care (01) | LOC: LAB.N 08:00 | PROVIDERS: ATTEND Family Medicine | DX: I82.403 Acute embolism and thrombosis of unspecified deep veins of lower extremity, bilateral (principal); Z79.01 Long term (current) use of anticoagulants ==

== ENCOUNTER 2021-12-26 15:23 | Outpatient (CLI) | payer MEDICARE, OTHER | END 2021-12-26 15:24 | disposition critical access hospital (66) | LOC: EMS 15:23 | DX: R06.02 Shortness of breath (principal); Z99.81 Dependence on supplemental oxygen | CPT/HCPCS: A0425; A0427 ==

== ENCOUNTER 2021-12-26 15:51 | Inpatient (IN) | payer MEDICARE, OTHER ==
[2021-12-26] MEDS ORDERED: IPRATROPIUM/ALBUTEROL 3 ML NEB INH STA (16:11)
--- NOTE | 2021-12-26 16:12 | ED Physician Documentation ---
PD HPI DYSPNEA - Stated complaint Stated Complaint: SOA - Chief complaint Chief Complaint: Resp - History obtained from History obtained from: Patient - Additional information Additional information: 76-year-old gentleman with history of COPD having quit smoking in 2000. He also has a history of pneumothoraces, the right maybe 6 years ago he thinks which required pleurodesis and the left in April of last year. He got back from [place] about a month ago where he noticed an increased oxygen requirement. He was doing better on return from [place] but for the last 2 weeks has required oxygen because of room air sats of 85% or so with increased shortness of breath and a cough productive of pale green sputum. No fevers. No weight loss. No pedal edema or calf pain. No chest pain. Review of Systems Ten Systems: 10 systems reviewed and negative Constitutional: denies: Fever, Chills Cardiac: denies: Chest pain / pressure, Palpitations Respiratory: denies: Hemoptysis GI: denies: Abdominal Pain PD PAST MEDICAL HISTORY - Past Medical History Cardiovascular: Deep vein thrombosis Respiratory: COPD, Other Endocrine/Autoimmune: HyPOthyroidism GI: None : None HEENT: Chronic vision loss Psych: None Musculoskeletal: Gout Derm: Other - Past Surgical History Past Surgical History: Yes General: Cholecystectomy Neuro: Craniotomy HEENT: Cataracts Derm: Skin cancer surgery - Present Medications Home Medications: Ambulatory Orders Medication Instructions Recorded Confirmed Warfarin Sodium [Coumadin] 5 - 7.5 mg PO DAILY 09/10/14 12/26/21 allopurinoL [Allopurinol] 100 mg PO QPM 09/10/14 12/26/21 levETIRAcetam [Keppra] 1,000 mg PO BID 09/10/14 12/26/21 Latanoprost 0.005% Ophth Drops 1 drops OPTH QPM 09/12/14 12/26/21 [Xalatan Ophth Drops] Levothyroxine Sodium 100 mcg PO DAILY 09/12/14 12/26/21 Albuterol Sulf [Ventolin Hfa 2 puffs INH Q4HR PRN 09/15/21 12/26/21 Inhaler] Cholecalciferol [Vitamin D3] 5,000 unit PO DAILY 09/15/21 12/26/21 Timolol [Betimol] 1 drops EACHEYE BID 09/15/21 12/26/21 Nystatin 1 applic DAILY 09/25/21 12/26/21 - Allergies Allergies/Adverse Reactions: Allergies Allergy/AdvReac Type Severity Reaction Status Date / Time No Known Drug Allergies Allergy Verified 12/26/21 16:17 - Social History Does the pt smoke?: No Smoking Status: Former smoker Does the pt drink ETOH?: No Does the pt have substance abuse?: No - Immunizations Immunizations are current?: Yes PD ED PE NORMAL - Vitals Vital signs reviewed: Yes - General General: Alert and oriented X 3, No acute distress - HEENT HEENT: PERRL, EOMI - Neck Neck: Supple, no meningeal sign, No bony TTP - Cardiac Cardiac: RRR, No murmur - Respiratory Respiratory: No respiratory distress, Other (Slightly diminished on the left compared to the right but diminished bilaterally. Rhonchi at both bases and the left apex. Breathing comfortably. Occasional bronchitic cough that sounds wet.) - Abdomen Abdomen: Non tender - Extremities Extremities: No edema, No calf tenderness / cord - Neuro Neuro: Alert and oriented X 3, Normal speech - Psych Psych: Normal mood, Normal affect Results - Vitals Vitals: Vital Signs - 24 hr 12/26/21 12/26/21 16:02 16:25 Heart Rate 111 H 100 Respiratory 24 18 Rate Blood Pressure 146/86 H O2 Saturation 88 L Oxygen O2 Source Nasal cannula Oxygen Flow Rate 2 - Labs Labs: Laboratory Tests 12/26/21 12/26/21 16:17 16:17 WBC 8.6 RBC 5.22 Hgb 15.4 Hct 46.3 MCV 88.7 MCH 29.5 MCHC 33.3 RDW 13.5 Plt Count 177 MPV 8.6 Neut # (Auto) 6.5 Lymph # (Auto) 1.2 L [place] # (Auto) 0.7 Eos # (Auto) 0.1 Baso # (Auto) 0.0 Absolute Nucleated RBC 0.00 Nucleated RBC % 0.0 Sodium 141 Potassium 4.3 Chloride 97 L Carbon Dioxide 36 H Anion Gap 8.0 BUN 17 Creatinine 1.0 Estimated GFR (MDRD) 73 L Glucose 115 H Calcium 9.4 - Rads (name of study) Single view chest x-ray demonstrates a moderate left pneumothorax without signs of tension Radiology: EMP read contemporaneously Procedures - Chest Tube (location) left 4th middle axillary line Chest tube preparation: Consent obtained (written), Time out completed, Sterile prep and drape Chest tube anesthesia: Lidocaine (20ml with epi) Chest tube size: 20 Chest tube return: Air, Blood (slight serous fluid), Connected to suction Chest tube after care: Sutured, Confirmed with xray, Pt tolerated well PD MEDICAL DECISION MAKING - ED course ED course: 76-year-old gentleman with history of COPD presents with dyspnea. Decreased breath sounds on the left and history of pneumothorax. Had an INR in the clinic that was 3.0 this morning. Chest x-ray demonstrates a moderate left-sided pneumothorax and a chest tube was placed. Dr. Isidro, the on-call surgeon will admit. - Critical Care Time(min): 35 Time Includes: Direct patient care, Review records, Reassess patient, Document care, Coordinate care, Medical consult Data interpretation: Labs, CXR Procedures excluded from critical care time: Chest tube Departure - Departure Disposition: 66 [facility] DC/Xfer Clinical Impression: Pneumothorax Condition: Serious
[2021-12-26 16:22] LABS: BASOPHILS % (AUTO) 0.1 %; EOSINOPHILS # (AUTO) 0.1 10^3/uL (0.0-0.7); EOSINOPHILS % (AUTO) 1.6 %; HCT - HEMATOCRIT 46.3 % (42.0-52.0); HGB - HEMOGLOBIN 15.4 g/dL (14.0-18.0); LYMPHOCYTES # (AUTO) 1.2 10^3/uL (1.5-3.5); MEAN CORPUSCULAR HEMOGLOBIN 29.5 pg (27.0-31.0); MEAN CORPUSCULAR HGB CONC 33.3 g/dL (32.0-36.0); MEAN CORPUSCULAR VOLUME 88.7 fL (80.0-94.0); MEAN PLATELET VOLUME 8.6 fL (7.4-11.4); MONOCYTES # (AUTO) 0.7 10^3/uL (0.0-1.0); MONOCYTES % (AUTO) 7.9 %; NEUTROPHILS # (AUTO) 6.5 10^3/uL (1.5-6.6); NEUTROPHILS % (AUTO) 76.2 %; PLT - PLATELET COUNT 177 10^3/uL (130-450); RED BLOOD COUNT 5.22 10^6/uL (4.70-6.10); RED CELL DISTRIBUTION WIDTH 13.5 % (12.0-15.0); WHITE BLOOD COUNT 8.6 x10^3/uL (4.8-10.8)
[2021-12-26 16:31] LABS: CALCIUM 9.4 mg/dL (8.5-10.3); POTASSIUM 4.3 mmol/L (3.5-5.0)
[2021-12-26] MEDS ORDERED: LIDOCAINE 1%-EPI 1:100000 20 ML MDV SUBQ STA (16:32)
[2021-12-26] MEDS ORDERED: ceFAZolin 1 GM in SODIUM CHLORIDE 0.9% MINIBAG 100 ML IV STA (16:34)
--- NOTE | 2021-12-26 16:47 | XRAY Report ---
PROCEDURE: Chest 1 View X-Ray INDICATIONS: dyspnea TECHNIQUE: One view of the chest was acquired. COMPARISON: Chest x-ray 06/10/2021 FINDINGS: Surgical changes and devices: None. Lungs and pleura: There is a moderate left pneumothorax appearing 4.3 cm from chest wall to pleural s urface. No midline shift. There is blunting of the costophrenic angles bilaterally. Lungs are hyperex panded with flattening of the hemidiaphragms consistent with COPD. Mediastinum: Mediastinal contours appear normal. Heart size is enlarged. Bones and chest wall: No suspicious bony lesions. Overlying soft tissues appear unremarkable. IMPRESSION: Moderate left pneumothorax without midline shift. The above findings were discussed with Dr. Bryce Melendez on 12/26/2021 at 4:45 PM. Reviewed by: Juanita Lund MD on 12/26/2021 4:46 PM PDT Approved by: Juanita Lund MD on 12/26/2021 4:46 PM PDT Station ID: [id number]
[2021-12-26] MEDS ORDERED: ACETAMINOPHEN 325 MG TABLET PO PRN (17:06)
[2021-12-26] MEDS ORDERED: SODIUM CHLORIDE FLUSH 0.9% 10 ML SYRINGE IVP PRN (17:06)
[2021-12-26] MEDS ORDERED: ZOLPIDEM 5 MG TABLET PO PRN (17:06)
[2021-12-26] MEDS ORDERED: ALBUTEROL NEB 2.5 MG/3 ML INH PRN (17:15)
--- NOTE | 2021-12-26 17:19 | HISTORY & PHYSICAL EXAMINATION ---
Chief Complaint - Chief Complaint Chief Complaint: shortness of breath History of Present Illness - Admitted From Admitted From:: ed - History Obtained From Records Reviewed: yes History obtained from: pt Exam Limitations: none - History of Present Illness HPI Comment/Other: history of spontaneous pneumothorax right and left and copd. He has had a pleurodesis at on the left. No pleurodesis on the left. cxr left ptx. left chest tube per ED MD History - Past Medical History Cardiovascular: reports: Deep vein thrombosis Respiratory: reports: COPD, Other Endocrine/Autoimmune: reports: HyPOthyroidism GI: reports: None : reports: None HEENT: reports: Chronic vision loss Psych: reports: None Musculoskeletal: reports: Gout Derm: reports: Other MRSA Hx?: No - Past Surgical History General: reports: Cholecystectomy Neuro: reports: Craniotomy HEENT: reports: Cataracts Derm: reports: Skin cancer surgery Meds/Allgy - Home Medications Home Medications: Ambulatory Orders Medication Instructions Recorded Confirmed Warfarin Sodium [Coumadin] 5 - 7.5 mg PO DAILY 09/10/14 12/26/21 allopurinoL [Allopurinol] 100 mg PO QPM 09/10/14 12/26/21 levETIRAcetam [Keppra] 1,000 mg PO BID 09/10/14 12/26/21 Latanoprost 0.005% Ophth Drops 1 drops OPTH QPM 09/12/14 12/26/21 [Xalatan Ophth Drops] Levothyroxine Sodium 100 mcg PO DAILY 09/12/14 12/26/21 Albuterol Sulf [Ventolin Hfa 2 puffs INH Q4HR PRN 09/15/21 12/26/21 Inhaler] Cholecalciferol [Vitamin D3] 5,000 unit PO DAILY 09/15/21 12/26/21 Timolol [Betimol] 1 drops EACHEYE BID 09/15/21 12/26/21 Nystatin 1 applic DAILY 09/25/21 12/26/21 - Allergies Allergies/Adverse Reactions: Allergies Allergy/AdvReac Type Severity Reaction Status Date / Time No Known Drug Allergies Allergy Verified 12/26/21 16:17 Review of Systems - Other Findings Other Findings: 10 pt ros as above otherwise unremarkable Exam - Vital Signs Reviewed Vital Signs: Yes Vital Signs: Vital Signs x48h Temp Pulse Resp BP Pulse Ox 12/26/21 16:25 100 18 12/26/21 16:02 37.0 C 111 H 24 146/86 H 88 L - Physical Exam General Appearance: positive: No acute distress, Alert Eyes Bilateral: positive: PERRL, EOMI, No scleral icterus Neck: positive: Trachea midline Respiratory: positive: No respiratory distress, Breath sounds nml Cardiovascular: positive: Regular rate & rhythm Abdomen: positive: Non-tender, No distention Neurologic/Psychiatric: positive: Oriented x3 Conclusion/Plan - Problem List (1) Pneumothorax Conclusion/Plan: chest tube care and observation - Lab Results Fish Bones: 12/26/21 16:17 12/26/21 16:17
--- NOTE | 2021-12-26 18:10 | XRAY Report ---
PROCEDURE: Chest for Line Placement INDICATIONS: post L chest tube TECHNIQUE: One view of the chest was acquired. COMPARISON: 12/26/2021 to 1557 hours. FINDINGS: Surgical changes and devices: Status post placement of left-sided chest tube which projects over the lower left hemithorax. Lungs and pleura: Small left-sided pneumothorax decreased in size compared to prior examination witho ut complete resolution. Patchy opacities in the lung bases bilaterally Mediastinum: Mediastinal contours appear normal. Heart size is normal. Bones and chest wall: No suspicious bony lesions. Overlying soft tissues appear unremarkable. IMPRESSION: Status post placement of left-sided chest tube with subsequent decrease in size in left-sided pneumot horax without complete resolution of the pneumothorax. Reviewed by: Kimmy Bryson MD, PhD on 12/26/2021 6:08 PM PDT Approved by: Kimmy Bryson MD, PhD on 12/26/2021 6:08 PM PDT Station ID: [id number]
[2021-12-26 19:19] LABS: B. PARAPERTUSSIS- RESP PCR PAN NOT DETECTED; B. PERTUSSIS- RESP PCR PANEL NOT DETECTED; C. PNEUMONIAE- RESP PCR PANEL NOT DETECTED; CORONAVIRUS 229E-RESP PCR NOT DETECTED; CORONAVIRUS HKU1-RESP PCR NOT DETECTED; CORONAVIRUS NL63-RESP PCR NOT DETECTED; CORONAVIRUS OC43-RESP PCR NOT DETECTED; HUMAN METAPNEUMOVIRUS NOT DETECTED; INFLUENZA A- RESP PCR PANEL NOT DETECTED; INFLUENZA B - RESP PCR PANEL NOT DETECTED; M. PNEUMONIAE- RESP PCR PANEL NOT DETECTED; PARAINFLUENZA VIRUS 1 NOT DETECTED; PARAINFLUENZA VIRUS 2 NOT DETECTED; PARAINFLUENZA VIRUS 3 NOT DETECTED; PARAINFLUENZA VIRUS 4 NOT DETECTED; RHINOVIRUS/ENTEROVIRUS NOT DETECTED; RSV- RESP PCR PANEL NOT DETECTED; SARS-CoV-2 -RESP PCR PANEL NOT DETECTED
[2021-12-26] MEDS: TIMOLOL 0.5% OPHTH DROPS EACHEYE SCH (21:52)
[2021-12-26] MEDS: levETIRAcetam 250 MG TABLET PO SCH (21:52)
[2021-12-26] MEDS: LATANOPROST 0.005% OPHTH DROPS EACHEYE SCH (21:53)
[2021-12-26] MEDS: SODIUM CHLORIDE FLUSH 0.9% 10 ML SYRINGE IVP SCH (23:35)
[2021-12-27] MEDS: LEVOTHYROXINE 100 MCG TABLET PO SCH (05:57)
--- NOTE | 2021-12-27 07:59 | XRAY Report ---
PROCEDURE: Chest 1 View X-Ray INDICATIONS: left pneumothorax follow up TECHNIQUE: One view of the chest was acquired. COMPARISON: 12/26/2021 FINDINGS: Surgical changes and devices: None. Lungs and pleura: Improving left apical pneumothorax now measures 1.4 cm to the thoracic apex, previo usly 2.3 cm. Subcutaneous air in the left chest wall is increasing compared to the prior. Mediastinum: Mediastinal contours appear normal. Heart size is normal. Bones and chest wall: No suspicious bony lesions. Overlying soft tissues appear unremarkable. IMPRESSION: 1. Improving small left apical pneumothorax and 2. Increasing chest wall subcutaneous air Reviewed by: Edwin Hebert MD on 12/27/2021 6:58 AM GREGORY Approved by: Edwin Hebert MD on 12/27/2021 6:58 AM GREGORY Station ID: [id number]
[2021-12-27] MEDS: levETIRAcetam 250 MG TABLET PO SCH ×2 (09:21→21:02)
[2021-12-27] MEDS: allopurinoL 100 MG TABLET PO SCH (09:22)
[2021-12-27] MEDS: TIMOLOL 0.5% OPHTH DROPS EACHEYE SCH ×2 (09:23→22:22)
[2021-12-27] MEDS: SODIUM CHLORIDE FLUSH 0.9% 10 ML SYRINGE IVP SCH ×2 (09:26→17:08)
--- NOTE | 2021-12-27 11:11 | PHARMACY PROGRESS NOTE ---
- Best Possible Medication History Admit Date and Time: 12/26/21 1706 Processed by: Nursing Medication History completed: Yes As the person ultimately responsible for medication therapy, providers are able to order a medication from an existing home medication list in [facility] via the "Reconcile Routine" prior to Confirmation of that medication by operations support manager. Such practice is discouraged except when the physician, in their clinical judgment, deems that a medical need exists for a medication without regard to previous use.
--- NOTE | 2021-12-27 11:58 | PROVIDER PROGRESS NOTE ---
Subjective - Subjective Pt reports feeling: Improved (feels well. no complaints) Objective - Vital Signs/Intake & Output Reviewed Vital Signs: Yes Vital Signs: Vital Signs x48h Temp Pulse Pulse Resp BP Pulse Ox 12/27/21 08:47 36.7 C 87 18 94 12/27/21 07:47 36.7 C 87 18 137/73 H 94 Intake & Output: Intake & Output 12/24/21 12/25/21 12/26/21 12/27/21 23:59 23:59 23:59 23:59 Intake Total 300 610 Output Total 10 430 Balance 290 180 - Objective General Appearance: positive: No acute distress, Alert Eyes Bilateral: positive: PERRL, EOMI, No scleral icterus Respiratory: positive: No respiratory distress, Other (chest tube no apparent leak) Abdomen: positive: Non-tender, No distention Neurologic/Psychiatric: positive: Oriented x3 - Lab Results Fish Bones: 12/26/21 16:17 12/26/21 16:17 Other Labs: Lab Results x24hrs 12/26/21 12/26/21 12/26/21 Range/Units 18:19 16:17 16:17 WBC 8.6 (4.8-10.8) x10^3/uL RBC 5.22 (4.70-6.10) 10^6/uL Hgb 15.4 (14.0-18.0) g/dL Hct 46.3 (42.0-52.0) % MCV 88.7 (80.0-94.0) fL MCH 29.5 (27.0-31.0) pg MCHC 33.3 (32.0-36.0) g/dL RDW 13.5 (12.0-15.0) % Plt Count 177 (130-450) 10^3/uL MPV 8.6 (7.4-11.4) fL Neut # (Auto) 6.5 (1.5-6.6) 10^3/uL Lymph # (Auto) 1.2 L (1.5-3.5) 10^3/uL [place] # (Auto) 0.7 (0.0-1.0) 10^3/uL Eos # (Auto) 0.1 (0.0-0.7) 10^3/uL Baso # (Auto) 0.0 (0.0-0.1) 10^3/uL Absolute Nucleated RBC 0.00 x10^3/uL Nucleated RBC % 0.0 /100WBC Sodium 141 (135-145) mmol/L Potassium 4.3 (3.5-5.0) mmol/L Chloride 97 L (101-111) mmol/L Carbon Dioxide 36 H (21-32) mmol/L Anion Gap 8.0 (6-13) BUN 17 (6-20) mg/dL Creatinine 1.0 (0.6-1.2) mg/dL Estimated GFR (MDRD) 73 L (>89) Glucose 115 H (70-100) mg/dL Calcium 9.4 (8.5-10.3) mg/dL Nasal Adenovirus (PCR) NOT DETECTED Nasal B. parapertussis DNA (PCR) NOT DETECTED Nasal Coronavir 229E PCR NOT DETECTED Nasal Coronavir HKU1 PCR NOT DETECTED Nasal Coronavir NL63 PCR NOT DETECTED Nasal Coronavir OC43 PCR NOT DETECTED Nasal Enterovir/Rhinovir PCR NOT DETECTED Nasal Influenza B PCR NOT DETECTED Nasal Influenza A PCR NOT DETECTED Nasal Parainfluen 1 PCR NOT DETECTED Nasal Parainfluen 2 PCR NOT DETECTED Nasal Parainfluen 3 PCR NOT DETECTED Nasal Parainfluen 4 PCR NOT DETECTED Nasal RSV (PCR) NOT DETECTED Nasal B.pertussis DNA PCR NOT DETECTED Nasal C.pneumoniae (PCR) NOT DETECTED Elias Human Metapneumo PCR NOT DETECTED Nasal M.pneumoniae (PCR) NOT DETECTED Nasal SARS-CoV-2 (PCR) NOT DETECTED - Diagnostic Imaging Diagnostic Imaging Results: positive: Read independently (improved) Assessment/Plan - Problem List (1) Pneumothorax Impression: small residual ptx. no apparent leak plan clamp chest tube tomrrow if ptx resolved and chest tube out tomorrow night or in am 2021
[2021-12-27] MEDS: WARFARIN 5 MG TABLET PO SCH (14:17)
[2021-12-27] MEDS: LATANOPROST 0.005% OPHTH DROPS EACHEYE SCH (22:27)
[2021-12-28] MEDS: SODIUM CHLORIDE FLUSH 0.9% 10 ML SYRINGE IVP SCH ×4 (00:56→23:43)
[2021-12-28] MEDS: LEVOTHYROXINE 100 MCG TABLET PO SCH (05:27)
--- NOTE | 2021-12-28 07:43 | XRAY Report ---
PROCEDURE: Chest 1 View X-Ray INDICATIONS: follow up ptx TECHNIQUE: One view of the chest was acquired. COMPARISON: 12/27/2021 FINDINGS: Surgical changes and devices: Left-sided chest tube in place, unchanged Lungs and pleura: Left apical pneumothorax appears slightly larger than the prior exam now measuring approximately 2 cm to the thoracic apex, previously 1.4 cm. Significant worsening of left-sided chest wall subcutaneous air now extends up into the neck. Pneumomediastinum noted as well Mediastinum: Mediastinal contours appear normal. Heart size is normal. Bones and chest wall: No suspicious bony lesions. Overlying soft tissues appear unremarkable. IMPRESSION: 1. Small left apical pneumothorax is slightly increased in size. 2. Worsening chest wall subcutaneous air and pneumomediastinum 3. Unchanged left-sided chest tube Reviewed by: Edwin Hebert MD on 12/28/2021 6:42 AM GREGORY Approved by: Edwin Hebert MD on 12/28/2021 6:42 AM GREGORY Station ID: [id number]
[2021-12-28] MEDS: TIMOLOL 0.5% OPHTH DROPS EACHEYE SCH ×2 (08:50→21:03)
[2021-12-28] MEDS: levETIRAcetam 250 MG TABLET PO SCH ×2 (08:50→21:02)
[2021-12-28] MEDS: allopurinoL 100 MG TABLET PO SCH (08:50)
--- NOTE | 2021-12-28 12:56 | PROVIDER PROGRESS NOTE ---
Subjective - Prog Note Date Prog Note Date: 12/28/21 - Subjective Pt reports feeling: No change (feel ok. no breathing problem) Objective - Vital Signs/Intake & Output Reviewed Vital Signs: Yes Vital Signs: Vital Signs x48h Temp Pulse Resp BP Pulse Ox 12/28/21 07:34 36.7 C 80 16 126/74 97 Intake & Output: Intake & Output 12/25/21 12/26/21 12/27/21 12/28/21 23:59 23:59 23:59 23:59 Intake Total 300 1780 980 Output Total 10 985 267 Balance 290 795 713 - Objective General Appearance: positive: No acute distress, Alert Eyes Bilateral: positive: PERRL, EOMI Respiratory: positive: No respiratory distress Abdomen: positive: Non-tender, No distention Neurologic/Psychiatric: positive: Oriented x3 - Lab Results Fish Bones: 12/26/21 16:17 12/26/21 16:17 - Diagnostic Imaging Diagnostic Imaging Results: positive: Read independently Assessment/Plan - Problem List (1) Pneumothorax Impression: chest tube not working well with increasing subcut air and small ptx still persistent. plan new chest tube today.
--- NOTE | 2021-12-28 14:01 | OPERATIVE REPORT ---
Operative Report - General Admit Date: 12/26/21 Procedure Date: 12/28/21 Planned Procedure: replace left chest tube Pre-Op Diagnosis: left ptx and poorly function left chest tube Procedure Performed: replace left chest tube Post Op Diagnosis: same. chest tube functional after replacement - Procedure Note Primary Surgeon: leyla woody Anesthesia Technique: Other (none) Estimated Blood Loss (mL): 0 Findings: chest tube funtional Complications: none - Other Other Information/Narrative: With sterile technique the smaller chest tube was removed. The area had been prepped and draped in a sterile fashion. A larger 28 [place] chest tube was placed and positioned towards apex of the chest. It was connected to the Pleur- evac. Air bubbles returned. The chest tube appeared to be working well. Sterile dressing was applied. The chest tube was secured with tape. He tolerated the procedure well.
[2021-12-28] MEDS: WARFARIN 5 MG TABLET PO SCH (14:42)
[2021-12-28] MEDS: LATANOPROST 0.005% OPHTH DROPS EACHEYE SCH (21:03)
[2021-12-29] MEDS: LEVOTHYROXINE 100 MCG TABLET PO SCH (05:51)
[2021-12-29 07:28] LABS: INR 2.2 (0.8-1.2); PT - PROTHROMBIN TIME 24.3 secs (9.9-12.6)
[2021-12-29] MEDS: SODIUM CHLORIDE FLUSH 0.9% 10 ML SYRINGE IVP SCH ×2 (08:30→20:47)
--- NOTE | 2021-12-29 09:40 | PROVIDER PROGRESS NOTE ---
Subjective - Subjective Pt reports feeling: Improved (no breathing problem) Objective - Vital Signs/Intake & Output Reviewed Vital Signs: Yes Vital Signs: Vital Signs x48h Temp Pulse Resp BP Pulse Ox 12/29/21 07:27 36.4 C L 81 16 129/68 98 Intake & Output: Intake & Output 12/26/21 12/27/21 12/28/21 12/29/21 23:59 23:59 23:59 23:59 Intake Total 300 1780 1630 1000 Output Total 10 985 480 617 Balance 731 485 2390 383 - Objective General Appearance: positive: No acute distress, Alert Eyes Bilateral: positive: PERRL, EOMI Respiratory: positive: No respiratory distress, Other (air leak still present subcut air more apparent upper chest today was present on cxr yesterday am prior to tube change) Neurologic/Psychiatric: positive: Oriented x3 - Lab Results Fish Bones: 12/26/21 16:17 12/26/21 16:17 Other Labs: Lab Results x24hrs 12/29/21 Range/Units 07:09 PT 24.3 H (9.9-12.6) secs INR 2.2 H (0.8-1.2) Assessment/Plan - Problem List (1) Pneumothorax Impression: continued air leak continue present care cxr tomorrow ok to have ct off suction for ambulation
[2021-12-29] MEDS: levETIRAcetam 250 MG TABLET PO SCH ×2 (10:00→20:51)
[2021-12-29] MEDS: allopurinoL 100 MG TABLET PO SCH (10:00)
[2021-12-29] MEDS: TIMOLOL 0.5% OPHTH DROPS EACHEYE SCH ×2 (10:01→20:51)
[2021-12-29] MEDS: WARFARIN 5 MG TABLET PO SCH (14:02)
[2021-12-29] MEDS: LATANOPROST 0.005% OPHTH DROPS EACHEYE SCH (20:46)
[2021-12-30] MEDS: SODIUM CHLORIDE FLUSH 0.9% 10 ML SYRINGE IVP SCH ×3 (00:01→20:33)
[2021-12-30] MEDS: LEVOTHYROXINE 100 MCG TABLET PO SCH (05:48)
[2021-12-30] MEDS: allopurinoL 100 MG TABLET PO SCH (07:52)
[2021-12-30] MEDS: levETIRAcetam 250 MG TABLET PO SCH ×2 (07:52→20:32)
[2021-12-30] MEDS: TIMOLOL 0.5% OPHTH DROPS EACHEYE SCH ×2 (07:53→20:33)
--- NOTE | 2021-12-30 08:13 | XRAY Report ---
PROCEDURE: Chest 1 View X-Ray INDICATIONS: follow up ptx TECHNIQUE: One view of the chest was acquired. COMPARISON: 12/28/2021, 12/27/2021, 12/26/2021 FINDINGS: Surgical changes and devices: Left-sided chest tube is again noted. Lungs and pleura: Tiny residual left apical pneumothorax is again seen. There is no focal infiltrate. No pleural effusion. Mediastinum: Mediastinal contours appear normal. Heart size is normal. Bones and chest wall: No suspicious bony lesions. Extensive subcutaneous emphysema in left neck soft tissue extending to left lateral chest wall is unchanged. IMPRESSION: Tiny residual left apical pneumothorax, decreased in size compared to 12/28/2021 study. Reviewed by: Riccardo Nicole MD on 12/30/2021 8:12 AM PDT Approved by: Riccrado Nicole MD on 12/30/2021 8:12 AM PDT Station ID: [id number]
--- NOTE | 2021-12-30 10:06 | PROVIDER PROGRESS NOTE ---
Subjective - Prog Note Date Prog Note Date: 12/30/21 - Subjective Pt reports feeling: Improved (no problems) Objective - Vital Signs/Intake & Output Reviewed Vital Signs: Yes Vital Signs: Vital Signs x48h Temp Pulse Resp BP Pulse Ox 12/30/21 07:40 36.5 C 99 17 144/67 H 92 Intake & Output: Intake & Output 12/27/21 12/28/21 12/29/21 12/30/21 23:59 23:59 23:59 23:59 Intake Total 1780 1630 1480 360 Output Total 049 952 0395 430 Balance 795 1150 -90 -70 - Objective General Appearance: positive: No acute distress, Alert Eyes Bilateral: positive: PERRL, EOMI Respiratory: positive: No respiratory distress, Other (lung air leak still present however improved) Abdomen: positive: Non-tender, No distention Neurologic/Psychiatric: positive: Oriented x3 - Lab Results Fish Bones: 12/26/21 16:17 12/26/21 16:17 - Diagnostic Imaging Diagnostic Imaging Results: positive: Read independently (chest tube in good position) Assessment/Plan - Problem List (1) Pneumothorax Impression: air leak beginning to improve continue present care ct to suction except for ambulation
[2021-12-30] MEDS: WARFARIN 5 MG TABLET PO SCH (14:20)
[2021-12-30] MEDS: LATANOPROST 0.005% OPHTH DROPS EACHEYE SCH (20:32)
[2021-12-31] MEDS: SODIUM CHLORIDE FLUSH 0.9% 10 ML SYRINGE IVP SCH ×4 (00:32→23:52)
[2021-12-31] MEDS: LEVOTHYROXINE 100 MCG TABLET PO SCH (06:45)
[2021-12-31] MEDS: allopurinoL 100 MG TABLET PO SCH (08:00)
[2021-12-31] MEDS: levETIRAcetam 250 MG TABLET PO SCH ×2 (08:00→20:49)
[2021-12-31] MEDS: TIMOLOL 0.5% OPHTH DROPS EACHEYE SCH ×2 (08:02→20:49)
--- NOTE | 2021-12-31 09:33 | PROVIDER PROGRESS NOTE ---
Subjective - Prog Note Date Prog Note Date: 12/31/21 - Subjective Pt reports feeling: Improved (no problems) Objective - Vital Signs/Intake & Output Reviewed Vital Signs: Yes Vital Signs: Vital Signs x48h Temp Pulse Resp BP Pulse Ox 12/31/21 07:44 36.6 C 94 18 124/64 94 Intake & Output: Intake & Output 12/28/21 12/29/21 12/30/21 12/31/21 23:59 23:59 23:59 23:59 Intake Total 1630 1480 1000 450 Output Total 480 1570 452 925 Balance 1150 90 100 -029 - Objective General Appearance: positive: No acute distress, Alert Eyes Bilateral: positive: PERRL, EOMI Neck: positive: No JVD, Trachea midline Respiratory: positive: No respiratory distress, Other (air leak appears to have stopped) Abdomen: positive: Non-tender, No distention Neurologic/Psychiatric: positive: Oriented x3 - Lab Results Fish Bones: 12/26/21 16:17 12/26/21 16:17 Assessment/Plan - Problem List (1) Pneumothorax Impression: appears to have healed plan clamp ct this evening cxr in am and d/c ct tomorrow and home tomorrow if no ptx
[2021-12-31] MEDS: WARFARIN 5 MG TABLET PO SCH (14:21)
[2021-12-31] MEDS: LATANOPROST 0.005% OPHTH DROPS EACHEYE SCH (20:48)
[2022-01-01] MEDS: LEVOTHYROXINE 100 MCG TABLET PO SCH (05:25)
[2022-01-01] MEDS: levETIRAcetam 250 MG TABLET PO SCH (08:41)
[2022-01-01] MEDS: allopurinoL 100 MG TABLET PO SCH (08:42)
[2022-01-01] MEDS: SODIUM CHLORIDE FLUSH 0.9% 10 ML SYRINGE IVP SCH (08:42)
[2022-01-01] MEDS: TIMOLOL 0.5% OPHTH DROPS EACHEYE SCH (08:42)
--- NOTE | 2022-01-01 10:30 | Discharge Plan ---
Discharge Plan Problem Reviewed?: Yes Disposition: Home, Self Care Condition: Good Diet: Regular Activity Restrictions: No Restrictions Driving Restrictions: No Health Concerns: recent pneumothorax Plan of Treatment: he had chest tube placement Assessment: doing well after pneumothorax healed Additional Instructions or Follow Up instructions: call the surgery office with any concerns call the surgery office to make a follow up appointment [phone] leave the dressing on for a week ok to shower and get the dressing wet No Smoking: If you smoke, Please STOP! Call for help. Follow-up with: Brody Garcia DO [Primary Care Provider] -
--- NOTE | 2022-01-01 10:32 | DISCHARGE SUMMARY ---
"Discharge Summary Admit Date: 12/26/21 Discharge Date: 01/01/22 Discharging Provider: leyla woody Code Status: Attempt Resuscitation Condition at Discharge: Good Discharge Disposition: 01 Home, Self Care Discharge Facility Name: [facility] - DIAGNOSES Admission Diagnoses: left pneumothorax Discharge Diagnoses with Status of Each Condition: home in good condition - HPI History of Present Illness: presented with shortness of breath. found to have a pneumothorax and chest tube placed. chest tube replaced. pneumothorax healed and chest tube removed 01/01/2022 - CONSULTS | PROCEDURES Procedures: as above - HOSPITAL COURSE Hospital Course: did well. home 01/01/2022 with pneumothorax healed/ resolved - ALLERGIES Allergies/Adverse Reactions: Allergies Allergy/AdvReac Type Severity Reaction Status Date / Time No Known Drug Allergies Allergy Verified 12/26/21 16:17 - MEDICATIONS Home Medications: Ambulatory Orders Medication Instructions Recorded Confirmed allopurinoL [Allopurinol] 100 mg PO QPM 09/10/14 12/26/21 levETIRAcetam [Keppra] 1,000 mg PO BID 09/10/14 12/26/21 Latanoprost 0.005% Ophth Drops 1 drops OPTH QPM 09/12/14 12/26/21 [Xalatan Ophth Drops] Levothyroxine Sodium 100 mcg PO QDAC 09/12/14 12/27/21 Albuterol Sulf [Ventolin Hfa 2 puffs INH Q4HR PRN 09/15/21 12/26/21 Inhaler] Cholecalciferol [Vitamin D3] 5,000 unit PO DAILY 09/15/21 12/26/21 Timolol [Betimol] 1 drops EACHEYE BID 09/15/21 12/26/21 Nystatin 1 applic DAILY 09/25/21 12/26/21 Warfarin [Coumadin] 5 mg PO MOWEFR 12/27/21 12/27/21 Warfarin [Coumadin] 7.5 mg PO SUTUTHSA 12/27/21 12/27/21 - PHYSICAL EXAM AT DISCHARGE General Appearance: positive: No acute distress, Alert Eyes Bilateral: positive: PERRL, EOMI, No scleral icterus ENT: positive: No signs of dehydration Neck: positive: No JVD, Trachea midline Respiratory: positive: No respiratory distress, Breath sounds nml Abdomen: positive: Non-tender, No distention Neurologic/Psychiatric: positive: Oriented x3 - LABS Result Diagrams: 12/26/21 16:17 12/26/21 16:17 - DIAGNOSTIC IMAGING Diagnostic Imaging Results: Read independently - FOLLOW UP Follow Up: surgery call to make an appointment [phone]"
[2022-01-01 11:01] VITALS: BP 110/66
--- NOTE | 2022-01-01 11:33 | XRAY Report ---
PROCEDURE: Chest 1 View X-Ray INDICATIONS: follow up ptx TECHNIQUE: One view of the chest was acquired. COMPARISON: Chest x-ray 12/30/2021 FINDINGS: Surgical changes and devices: Left chest tube is present with distal tip projecting over the left ape x. Lungs and pleura: There is no definitive pneumothorax. However, there is soft tissue overlap from the inferior location of the patient's head position. Minimal appearance of opacities are present in the bases. Mediastinum: Mediastinal contours appear normal. Heart size is normal. Bones and chest wall: No suspicious bony lesions. Overlying soft tissues demonstrate prominent subc utaneous emphysema. IMPRESSION: No definitive pneumothorax. However, there is limited view secondary to patient head positioning. Mild increased basilar opacities possibly related to dependent edema versus atelectasis. Reviewed by: Juanita Lund MD on 01/01/2022 11:32 AM PDT Approved by: Juanita Lund MD on 01/01/2022 11:32 AM PDT Station ID: [id number]
== END 2022-01-01 12:30 | disposition home or self-care (01) | DRG 200 ==
LOC: EDUNIT# → ED 15:51 → MS3 17:06
PROVIDERS: ADMIT Surgery; ATTEND Surgery
PROC: 0W2BX0Z Change Drainage Device in Left Pleural Cavity, External Approach (ICD-10-PCS; principal; 2021-12-28)
DX: J93.9 Pneumothorax, unspecified (principal); T85.638A Leakage of other specified internal prosthetic devices, implants and grafts, initial encounter; J44.9 Chronic obstructive pulmonary disease, unspecified; Z87.891 Personal history of nicotine dependence; E03.9 Hypothyroidism, unspecified; Z20.822 Contact with and (suspected) exposure to COVID-19; Z86.718 Personal history of other venous thrombosis and embolism; Z79.01 Long term (current) use of anticoagulants; M10.9 Gout, unspecified
CPT/HCPCS: 32551; 36415; 71045; 80048; 85025; 85610; 87633; 94640; 99285; 99291; A9270

== ENCOUNTER 2022-01-02 08:00 | Outpatient (CLI) | payer MEDICARE, OTHER | END 2022-01-02 23:59 | disposition home or self-care (01) | LOC: LAB.N 08:00 | PROVIDERS: ATTEND Nurse Practitioner Family | DX: I82.403 Acute embolism and thrombosis of unspecified deep veins of lower extremity, bilateral (principal); Z79.01 Long term (current) use of anticoagulants ==

== ENCOUNTER 2022-01-16 08:00 | Outpatient (CLI) | payer MEDICARE, OTHER | END 2022-01-16 08:01 | disposition home or self-care (01) | LOC: LAB.N 08:00 | PROVIDERS: ATTEND Nurse Practitioner Family | DX: I82.403 Acute embolism and thrombosis of unspecified deep veins of lower extremity, bilateral (principal); Z79.01 Long term (current) use of anticoagulants ==

== ENCOUNTER 2022-01-21 15:05 | Outpatient (CLI) | payer MEDICARE, OTHER ==
--- NOTE | 2022-01-21 19:14 | CT Report ---
PROCEDURE: CHEST WO INDICATIONS: LUNG NODULE TECHNIQUE: Noncontrast 1mm axial images were acquired from the pulmonary apices to the posterior costophrenic an gles. Axial 5 mm soft tissue kernel reconstructions were performed as well as 8 mm axial MIP and cor onal and sagittal 5 mm reformations. For radiation dose reduction, the following was used: automate d exposure control, adjustment of mA and/or kV according to patient size. COMPARISON: 06/10/2021 FINDINGS: Image quality: Excellent. Lungs and pleura: Stable moderate severe pulmonary emphysema with apical predominance. Previous right upper lobe medial right apical pulmonary nodule as essentially resolved has been repla yaritza with linear scarring. Centralized bronchial wall thickening consistent with chronic chronic bronc hitis. There is a new right lower lobe 6 mm pulmonary nodule on image 4/202 Additional left lower lobe 6 mm nodule noted on image 4/237, stable. Left upper lobe 10 x 6 mm nodule noted on image 4/148, new Mediastinum: Heart size is normal. No pericardial effusion. No mediastinal adenopathy by size crit eria. Thoracic aorta and central pulmonary arteries are normal in size. Esophagus is normal in ofelia sophie. No hiatal hernia. Bones and chest wall: No suspicious bony lesions. No vertebral body compression fractures. No axil emili or supraclavicular adenopathy by size criteria. The thyroid is normal in size and there are no incidental findings. Incidental note is made of subcutaneous air noted overlying the left chest wall as well as a small amount of anterior pneumomediastinum. Abdomen: Visualized upper abdominal solid organs and bowel loops appear normal in the absence of con trast. IMPRESSION: 1. Incidental left chest wall subcutaneous air associated with pneumomediastinum probably reflects a ruptured bleb or bulla. Less likely differential would be infection. 2. Advanced pulmonary emphysema is relatively stable from prior exam. 3. Several pulmonary nodules present. Several are new, and a previous right upper lobe nodule has res olved in the interval. Consider 3-6 month follow-up Reviewed by: Edwin Hebert MD on 01/21/2022 6:13 PM AKDT Approved by: Edwin Hebert MD on 01/21/2022 6:13 PM AKDT Station ID: [id number]
== END 2022-01-21 15:06 | disposition home or self-care (01) ==
LOC: DI 15:05
PROVIDERS: ATTEND Nurse Practitioner Family
DX: R91.8 Other nonspecific abnormal finding of lung field (principal); J43.9 Emphysema, unspecified; Z85.118 Personal history of other malignant neoplasm of bronchus and lung

== ENCOUNTER → 2022-02-04 | Outpatient (CLI) | payer MEDICARE, OTHER | LOC: LAB.WCP 08:00 | PROVIDERS: ATTEND Nurse Practitioner Family | DX: I82.403 Acute embolism and thrombosis of unspecified deep veins of lower extremity, bilateral (principal); Z79.01 Long term (current) use of anticoagulants ==

== ENCOUNTER → 2022-03-04 | Outpatient (CLI) | payer MEDICARE, OTHER | LOC: LAB.N 08:00 | PROVIDERS: ATTEND Nurse Practitioner Family | DX: Z79.01 Long term (current) use of anticoagulants (principal); I82.403 Acute embolism and thrombosis of unspecified deep veins of lower extremity, bilateral ==

== ENCOUNTER 2022-04-29 13:38 | Outpatient (CLI) | payer MEDICARE, OTHER ==
[2022-04-29 18:13] LABS: CHOL/HDL RATIO 4.2 (<5.0); CHOLESTEROL 177 mg/dL; HDL CHOLESTEROL 42 mg/dL; LDL CHOLESTEROL,CALCULATED 119 mg/dL; LDL/HDL RATIO 2.8 (<3.6); TRIGLYCERIDES 82 mg/dL; URIC ACID 3.5 mg/dL (2.6-7.2); VLDL CHOLESTEROL 16 mg/dL
[2022-04-29 18:15] LABS: THYROID STIMULATING HORMONE 4.97 uIU/mL (0.34-5.60)
== END 2022-04-29 13:39 | disposition home or self-care (01) ==
LOC: LAB.N 13:38
PROVIDERS: ATTEND Nurse Practitioner Family
DX: M10.9 Gout, unspecified (principal); E03.9 Hypothyroidism, unspecified; E78.5 Hyperlipidemia, unspecified
CPT/HCPCS: 36415; 80061; 83721; 84443; 84550

== ENCOUNTER 2022-04-30 14:54 | Outpatient (CLI) | payer MEDICARE, OTHER ==
--- NOTE | 2022-04-30 17:03 | CT Report ---
PROCEDURE: CHEST WO INDICATIONS: LUNG NODULE TECHNIQUE: Noncontrast 1mm axial images were acquired from the pulmonary apices to the posterior costophrenic an gles. Axial 5 mm soft tissue kernel reconstructions were performed as well as 8 mm axial MIP and cor onal and sagittal 5 mm reformations. For radiation dose reduction, the following was used: automate d exposure control, adjustment of mA and/or kV according to patient size. COMPARISON: 01/21/2022, 06/10/2021, 11/13/2020 FINDINGS: Image quality: Excellent. Lungs and pleura: Multiple poorly defined pulmonary nodules are seen. These are overall worse than o n the prior examination. For example, there is a new nodule involving the posterior aspect of the rig ht upper lobe, as on series 4 image 90, measuring 6 mm. There is also a measuring new poorly defined nodule seen involving the anterolateral aspect of the inferior right lower lobe, as on series 4 image 199, measuring 12 mm, which cannot be seen on the prior study. Underlying osseous changes are seen, which are worst superiorly. The central airways are patent. No p leural effusions or pneumothorax can be seen. Mediastinum: Heart size is normal. No pericardial effusion. No mediastinal adenopathy by size crit eria. Thoracic aorta and central pulmonary arteries are normal in size. Esophagus is normal in ofelia sophie. There is a small hiatal hernia. Bones and chest wall: No suspicious bony lesions. No vertebral body compression fractures. No axil emili or supraclavicular adenopathy by size criteria. The thyroid is normal in size and there are no incidental findings. Abnormally prominent vessels can be seen involving the lower chest wall and the subcutaneous abdomen. The previously seen left-sided central venous gas has resolved. Abdomen: Cholecystectomy clips are seen. Simple appearing bilateral renal cysts are seen. An IVC fi lter is partially seen. The visualized portions of the upper abdominal structures are otherwise withi n normal limits. IMPRESSION: Multiple poorly defined pulmonary nodules are seen. These are nonspecific. Given the relative rapid c hange, infection is felt most likely, although differential diagnosis would also include metastatic d isease. Abnormally prominent vessels can be seen involving the lower chest wall and the anterior subcutaneous abdomen. Incidental note is made of: Cholecystectomy Bilateral renal cysts IVC filter Reviewed by: Ray Patiño MD on 04/30/2022 4:02 PM AKDT Approved by: Ray Patiño MD on 04/30/2022 4:02 PM GREGORY Station ID: [id number]
== END 2022-04-30 14:55 | disposition home or self-care (01) ==
LOC: DI 14:54
PROVIDERS: ATTEND Nurse Practitioner Family
DX: R91.8 Other nonspecific abnormal finding of lung field (principal); Z85.118 Personal history of other malignant neoplasm of bronchus and lung; J44.9 Chronic obstructive pulmonary disease, unspecified

== ENCOUNTER → 2022-05-20 | Outpatient (CLI) | payer MEDICARE, OTHER | LOC: LAB.WCP 08:00 | PROVIDERS: ATTEND Nurse Practitioner Family | DX: I82.403 Acute embolism and thrombosis of unspecified deep veins of lower extremity, bilateral (principal); Z86.718 Personal history of other venous thrombosis and embolism; Z79.01 Long term (current) use of anticoagulants ==

== ENCOUNTER 2022-06-10 08:00 | Outpatient (CLI) | payer MEDICARE, OTHER | END 2022-06-10 08:01 | disposition home or self-care (01) | LOC: LAB.WCP 08:00 | PROVIDERS: ATTEND Nurse Practitioner Family | DX: Z79.01 Long term (current) use of anticoagulants (principal); Z86.718 Personal history of other venous thrombosis and embolism ==

== ENCOUNTER → 2022-06-17 | Outpatient (CLI) | payer MEDICARE, OTHER | LOC: LAB.N 08:00 | PROVIDERS: ATTEND Nurse Practitioner Family | DX: I82.403 Acute embolism and thrombosis of unspecified deep veins of lower extremity, bilateral (principal); Z86.718 Personal history of other venous thrombosis and embolism; Z79.01 Long term (current) use of anticoagulants ==

== ENCOUNTER 2022-08-12 08:00 | Outpatient (CLI) | payer MEDICARE, OTHER | END 2022-08-12 23:59 | disposition home or self-care (01) | LOC: LAB.WCP 08:00 | PROVIDERS: ATTEND Nurse Practitioner Family | DX: Z79.01 Long term (current) use of anticoagulants (principal); I82.403 Acute embolism and thrombosis of unspecified deep veins of lower extremity, bilateral; Z86.718 Personal history of other venous thrombosis and embolism ==

== ENCOUNTER 2022-08-19 08:00 | Outpatient (CLI) | payer MEDICARE, OTHER | END 2022-08-19 23:59 | disposition home or self-care (01) | LOC: LAB.WCP 08:00 | PROVIDERS: ATTEND Nurse Practitioner Family | DX: Z79.01 Long term (current) use of anticoagulants (principal); Z86.718 Personal history of other venous thrombosis and embolism ==

== ENCOUNTER 2022-09-20 17:43 | Outpatient (CLI) | payer MEDICARE, OTHER | END 2022-09-20 17:44 | disposition home or self-care (01) | LOC: DI 17:43 | PROVIDERS: ATTEND Nurse Practitioner | DX: Z53.9 Procedure and treatment not carried out, unspecified reason (principal) ==

== ENCOUNTER 2022-09-21 13:04 | Outpatient (CLI) | payer MEDICARE, OTHER ==
--- NOTE | 2022-09-21 13:53 | XRAY Report ---
PROCEDURE: Chest 2 View X-Ray INDICATIONS: PNUEMOTHORAX TECHNIQUE: 2 views of the chest were acquired. COMPARISON: 04/30/2022 FINDINGS: Surgical changes and devices: None. Lungs and pleura: Emphysema. Branching nodules in the right lower lung zone. No pneumothorax. Mediastinum: Mediastinal contours are normal. Heart size is normal. Bones and chest wall: No suspicious bony abnormalities. Soft tissues appear unremarkable. IMPRESSION: 1.No pneumothorax. 2.Branching nodules within the right lower lung zone, not significantly changed from prior, although comparison between x-ray and CT is not reliable. Reviewed by: Farrukh Shrestha on 09/21/2022 1:51 PM PDT Approved by: Farrukh Shrestha on 09/21/2022 1:51 PM PDT Station ID: [id number]
== END 2022-09-21 13:05 | disposition home or self-care (01) ==
LOC: DI 13:04
PROVIDERS: ATTEND Nurse Practitioner
DX: R91.8 Other nonspecific abnormal finding of lung field (principal)

== ENCOUNTER 2022-12-14 13:04 | Outpatient (CLI) | payer MEDICARE, OTHER ==
--- NOTE | 2022-12-14 16:48 | Ultrasound Report ---
PROCEDURE: Duplex Ext Veins Bilateral INDICATIONS: CORI LOPEZ MD TECHNIQUE: Real-time imaging, as well as color and pulse Doppler interrogation, were performed of the deep veins of both legs from the inguinal ligament to the popliteal fossa. COMPARISON: None FINDINGS: Chronic DVT is seen within the bilateral common femoral veins, as well as the left mid supe rficial femoral vein, and the right profunda femoral vein. Chronic superficial femoral phlebitis is s een within the greater saphenous veins bilaterally. 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 Reviewed by: Narendra Woodward MD on 12/14/2022 4:46 PM PDT Approved by: Narendra Woodward MD on 12/14/2022 4:46 PM PDT Station ID: [id number]
== END 2022-12-14 13:05 | disposition home or self-care (01) ==
LOC: DI 13:04
PROVIDERS: ATTEND Internal Medicine Hematology & Oncology
DX: I82.513 Chronic embolism and thrombosis of femoral vein, bilateral (principal); I82.813 Embolism and thrombosis of superficial veins of lower extremities, bilateral
CPT/HCPCS: 93970

== ENCOUNTER 2023-01-06 08:00 | Outpatient (CLI) | payer MEDICARE, OTHER | END 2023-01-06 23:59 | disposition home or self-care (01) | LOC: LAB.WCP 08:00 | PROVIDERS: ATTEND Family Medicine | DX: Z79.01 Long term (current) use of anticoagulants (principal); Z86.718 Personal history of other venous thrombosis and embolism; I80.9 Phlebitis and thrombophlebitis of unspecified site ==

== ENCOUNTER 2023-02-03 08:00 | Outpatient (CLI) | payer MEDICARE, OTHER | END 2023-02-03 23:59 | disposition home or self-care (01) | LOC: LAB.N 08:00 | PROVIDERS: ATTEND Internal Medicine | DX: Z79.01 Long term (current) use of anticoagulants (principal); I80.203 Phlebitis and thrombophlebitis of unspecified deep vessels of lower extremities, bilateral; Z86.718 Personal history of other venous thrombosis and embolism ==

== ENCOUNTER 2023-02-03 15:14 | Outpatient (CLI) | payer MEDICARE, OTHER ==
--- NOTE | 2023-02-03 20:42 | Ultrasound Report ---
PROCEDURE: Head or Neck Soft Tissue INDICATIONS: THYROID NODULE TECHNIQUE: Real-time scanning was performed of the thyroid gland, with image documentation. COMPARISON: 09/04/2021 FINDINGS: Right: Thyroid lobe measures 2.3 x 1.0 x 1.2 cm, and is homogeneous in echotexture. Left: Thyroid lobe measures 4.0 x 4.5 x 1.0 cm, and is homogenous in echotexture. Isthmus: 0.3 mm thick. Nodule number: One Location: Left Size: 2.6 x 2.3 x 2.1 cm, previously 3.2 x 2.2 x 2.0 cm. Composition: Solid (2 points). Echogenicity: Hypoechoic (2 points). Shape: wider than tall. Margins: Lobulated / Irregular (2 points). Echogenic foci: Peripheral (rim) calcification (2 points). Total points: 8 ACR TI-RADS category: Highly suspicious. IMPRESSION: Highly suspicious left thyroid nodule is nevertheless slightly smaller than the prior exam. Advise F NA if not done previously ACR TI-RADS definitions and recommendations: TI-RADS 1 (benign): 0 points. FNA not needed. TI-RADS 2 (not suspicious): 2 points. FNA not needed. TI-RADS 3 (mildly suspicious): 3 points. "FNA if 2.5 cm or larger, follow up if 1.5 cm or larger (at 1, 3, and 5 years). TI-RADS 4 (moderately suspicious): 4-6 points. "FNA if 1.5 cm or larger, follow up if 1 cm or larger (at 1, 2, 3, and 5 years). TI-RADS 5 (highly suspicious): 7 points or more. "FNA if 1 cm or larger, follow up if 0.5 cm or larger (every year for 5 years). Reviewed by: Edwin Hebert MD on 02/03/2023 7:41 PM [facility] Approved by: Edwin Hebert MD on 02/03/2023 7:41 PM GREG[facility] Station ID: [id number]
== END 2023-02-03 15:15 | disposition home or self-care (01) ==
LOC: DI 15:14
PROVIDERS: ATTEND Otolaryngology
DX: E04.1 Nontoxic single thyroid nodule (principal); I80.203 Phlebitis and thrombophlebitis of unspecified deep vessels of lower extremities, bilateral; Z79.01 Long term (current) use of anticoagulants; Z86.718 Personal history of other venous thrombosis and embolism

== ENCOUNTER 2023-02-19 08:00 | Outpatient (CLI) | payer MEDICARE, OTHER | END 2023-02-19 23:59 | disposition home or self-care (01) | LOC: LAB.N 08:00 | PROVIDERS: ATTEND Nurse Practitioner Family | DX: Z79.01 Long term (current) use of anticoagulants (principal); I82.403 Acute embolism and thrombosis of unspecified deep veins of lower extremity, bilateral ==

== ENCOUNTER 2023-04-30 08:00 | Outpatient (CLI) | payer MEDICARE, OTHER | END 2023-04-30 23:59 | disposition home or self-care (01) | LOC: LAB.N 08:00 | PROVIDERS: ATTEND Nurse Practitioner Family | DX: Z79.01 Long term (current) use of anticoagulants (principal); I82.403 Acute embolism and thrombosis of unspecified deep veins of lower extremity, bilateral; Z86.718 Personal history of other venous thrombosis and embolism ==

== ENCOUNTER 2023-06-25 08:00 | Outpatient (CLI) | payer MEDICARE, OTHER | END 2023-06-25 08:01 | disposition home or self-care (01) | LOC: LAB.N 08:00 | PROVIDERS: ATTEND Nurse Practitioner Family | DX: I82.403 Acute embolism and thrombosis of unspecified deep veins of lower extremity, bilateral (principal); Z86.718 Personal history of other venous thrombosis and embolism; Z79.01 Long term (current) use of anticoagulants ==

== ENCOUNTER 2023-07-16 08:00 | Outpatient (CLI) | payer MEDICARE, OTHER | END 2023-07-16 08:01 | disposition home or self-care (01) | LOC: LAB.N 08:00 | PROVIDERS: ATTEND Nurse Practitioner Family | DX: Z51.81 Encounter for therapeutic drug level monitoring (principal); Z79.01 Long term (current) use of anticoagulants; Z86.718 Personal history of other venous thrombosis and embolism ==

== ENCOUNTER 2023-08-27 08:00 | Outpatient (CLI) | payer MEDICARE, OTHER | END 2023-08-27 08:01 | disposition home or self-care (01) | LOC: LAB 08:00 | PROVIDERS: ATTEND Nurse Practitioner Family | DX: Z51.81 Encounter for therapeutic drug level monitoring (principal); Z86.718 Personal history of other venous thrombosis and embolism; Z79.01 Long term (current) use of anticoagulants ==

== ENCOUNTER 2023-09-08 08:00 | Outpatient (CLI) | payer MEDICARE, OTHER | END 2023-09-08 08:01 | disposition home or self-care (01) | LOC: LAB.N 08:00 | PROVIDERS: ATTEND Nurse Practitioner Family | DX: Z51.81 Encounter for therapeutic drug level monitoring (principal); Z86.718 Personal history of other venous thrombosis and embolism; Z79.01 Long term (current) use of anticoagulants ==

== ENCOUNTER 2023-10-06 08:00 | Outpatient (CLI) | payer MEDICARE, OTHER | END 2023-10-06 08:01 | disposition home or self-care (01) | LOC: LAB.WCP 08:00 | PROVIDERS: ATTEND Nurse Practitioner Family | DX: I82.403 Acute embolism and thrombosis of unspecified deep veins of lower extremity, bilateral (principal); Z86.718 Personal history of other venous thrombosis and embolism; Z79.01 Long term (current) use of anticoagulants ==

== ENCOUNTER 2023-12-08 08:00 | Outpatient (CLI) | payer MEDICARE, OTHER | END 2023-12-08 08:01 | disposition home or self-care (01) | LOC: LAB.N 08:00 | PROVIDERS: ATTEND Nurse Practitioner Family | DX: I82.403 Acute embolism and thrombosis of unspecified deep veins of lower extremity, bilateral (principal); Z86.718 Personal history of other venous thrombosis and embolism; Z79.01 Long term (current) use of anticoagulants ==

== ENCOUNTER 2024-01-24 17:11 | Outpatient (CLI) | payer MEDICARE, OTHER ==
[2024-01-24 21:15] LABS: BASOPHILS % (AUTO) 0.3 %; EOSINOPHILS # (AUTO) 0.2 10^3/uL (0.0-0.7); EOSINOPHILS % (AUTO) 2.9 %; HCT - HEMATOCRIT 46.3 % (42.0-52.0); HGB - HEMOGLOBIN 15.5 g/dL (14.0-18.0); LYMPHOCYTES # (AUTO) 1.2 10^3/uL (1.5-3.5); LYMPHOCYTES % (AUTO) 20.3 %; MEAN CORPUSCULAR HGB CONC 33.5 g/dL (32.0-36.0); MEAN CORPUSCULAR VOLUME 89.6 fL (80.0-94.0); MEAN PLATELET VOLUME 9.2 fL (7.4-11.4); MONOCYTES # (AUTO) 0.5 10^3/uL (0.0-1.0); MONOCYTES % (AUTO) 7.5 %; NEUTROPHILS # (AUTO) 4.2 10^3/uL (1.5-6.6); NEUTROPHILS % (AUTO) 68.8 %; PLT - PLATELET COUNT 212 10^3/uL (130-450); RED BLOOD COUNT 5.17 10^6/uL (4.70-6.10); RED CELL DISTRIBUTION WIDTH 13.5 % (12.0-15.0); WHITE BLOOD COUNT 6.1 x10^3/uL (4.8-10.8)
[2024-01-24 21:32] LABS: ALBUMIN 4.1 g/dL (3.2-5.5); ALBUMIN/GLOBULIN RATIO 1.1 (1.0-2.2); ALKALINE PHOSPHATASE 155 IU/L (42-121); ALT ALANINE AMINOTRANSFERASE 20 IU/L (10-60); AST ASPARTATE AMINOTRANSFERASE 21 IU/L (10-42); BILIRUBIN,TOTAL 0.6 mg/dL (0.2-1.0); BUN - BLOOD UREA NITROGEN 15 mg/dL (6-20); CALCIUM 9.6 mg/dL (8.5-10.3); CARBON DIOXIDE - CO2 31 mmol/L (21-32); CHLORIDE 105 mmol/L (101-111); CHOL/HDL RATIO 4.4 (<5.0); CHOLESTEROL 201 mg/dL; CREATININE 0.9 mg/dL (0.6-1.3); GFR - MDRD 82 (>89); GLUCOSE 125 mg/dL (74-104); HDL CHOLESTEROL 46 mg/dL; LDL CHOLESTEROL,CALCULATED 129 mg/dL; LDL/HDL RATIO 2.8 (<3.6); POTASSIUM 4.1 mmol/L (3.5-4.5); SODIUM 140 mmol/L (135-145); TOTAL PROTEIN 7.7 g/dL (6.4-8.9); TRIGLYCERIDES 130 mg/dL; URIC ACID 5.2 mg/dL (4.4-7.6); VLDL CHOLESTEROL 26 mg/dL
[2024-01-24 21:41] LABS: THYROID STIMULATING HORMONE 4.79 uIU/mL (0.34-5.60)
[2024-01-24 22:37] LABS: ESTIMATED AVERAGE GLUCOSE 108 mg/dL (70-100); HEMOGLOBIN A1c% 5.4 % (4.27-6.07)
== END 2024-01-24 17:12 | disposition home or self-care (01) ==
LOC: LAB.N 17:11
PROVIDERS: ATTEND Nurse Practitioner Family
DX: I10 Essential (primary) hypertension (principal); E78.5 Hyperlipidemia, unspecified; R73.01 Impaired fasting glucose; E03.9 Hypothyroidism, unspecified; M10.00 Idiopathic gout, unspecified site
CPT/HCPCS: 36415; 80053; 80061; 83036; 83721; 84443; 84550; 85025

== ENCOUNTER 2024-03-07 13:32 | Outpatient (CLI) | payer MEDICARE, OTHER ==
--- NOTE | 2024-03-09 14:46 | Ultrasound Report ---
PROCEDURE: Soft Tissue Head or Neck INDICATIONS: THYROID NODULE TECHNIQUE: Real-time scanning was performed of the thyroid gland, with image documentation. COMPARISON: 02/03/2023 FINDINGS: Right: Thyroid lobe measures 2.5 x 1.2 x 0.9 cm. Left: Thyroid lobe measures 3.0 x 1.1 x 2.1 cm Isthmus: 0.4 cm thick. Echotexture: Homogeneous. Nodule number: One Location: Left inferior Size: 3.1 x 2.2 x 1.9 cm, previously 2.6 x 2.3 x 2.0 cm. Composition: Solid. Echogenicity: Hypoechoic. Shape: wider than tall (0 points). Margins: Smooth (0 points). Echogenic foci: None (0 points). Total points: 4 ACR TI-RADS category: 4 IMPRESSION: Stable category 4 thyroid nodule ACR TI-RADS definitions and recommendations: TI-RADS 1 (benign): 0 points. FNA not needed. TI-RADS 2 (not suspicious): 2 points. FNA not needed. TI-RADS 3 (mildly suspicious): 3 points. "FNA if 2.5 cm or larger, follow up if 1.5 cm or larger (at 1, 3, and 5 years). TI-RADS 4 (moderately suspicious): 4-6 points. "FNA if 1.5 cm or larger, follow up if 1 cm or larger (at 1, 2, 3, and 5 years). TI-RADS 5 (highly suspicious): 7 points or more. "FNA if 1 cm or larger, follow up if 0.5 cm or larger (every year for 5 years). Reviewed by: Edwin Hebert MD on 03/09/2024 1:44 PM [facility] Approved by: Edwin Hebert MD on 03/09/2024 1:44 PM [facility] Station ID: [id number]
== END 2024-03-07 13:33 | disposition home or self-care (01) ==
LOC: DI 13:32
PROVIDERS: ATTEND Otolaryngology
DX: E04.1 Nontoxic single thyroid nodule (principal)